=== PATIENT | female | born 1975 | race Caucasian/White ===

== ENCOUNTER 2017-11-07 14:26 | Inpatient (IN) | payer OTHER, SELFPAY ==
[2017-11-02 09:11] LABS: Partial Thromboplast Time 31.1 Seconds (24.1-36.2)
[2017-11-02 09:37] LABS: Hematocrit 40.6 % (37-47); Hemoglobin 13.4 g/dl (12.0-15.0); Mean Corpuscular Hgb 26.7 pg (27.0-32.0); Mean Platelet Vol. 10.1 fl (6.2-12.0); Platelet Count 160 K/mm3 (150-450); Red Blood Count 5.01 M/mm3 (4.2-5.4); Scan Indicated on CBC? Y/N YES- FLAGS NOTED; White Blood Count 4.8 K/mm3 (4.4-11.0)
[2017-11-02 09:40] LABS: Thyroid Stim Hormone (TSH) 2.85 uIU/mL (0.358-3.74)
[2017-11-07] VITALS (17 sets, daily range): BP systolic 97–117; BP diastolic 63–86; PULSE 59–85; RESP 14–16; TEMP 36.4–37.2; O2SAT 92–100; BMI 26.8; BMI 26.6
--- NOTE | 2017-11-07 | HYST_PTH ---
PATIENT: MARIJA HARTAMN LOC: [facility]3 U#:[id number] AGE/SX: 42/F ROOM: [facility]313 RE11/07/[address]: Dr. Christin Diaz MD : [id number] BED: 1 DIS: 11/09/2017 SPEC #: [id number] RECD: 11/07/17 13:23 STATUS: MIRA REQ #: [id number] JOHANA: 11/07/17 00:[address]: Christin Diaz DEPT: SURGICAL PATHOLOGY RECD BY: Rico Abarca ENTERED: 11/07/17 13:23 SP TYPE: HYSTERECT OTHR DR: No Primary Care Phys Tissues: Uterus, NOS Procedures: Surgery Specimen Level V HEADER OPERATION: Attempted laparoscopic hysterectomy, supracervical abdominal hysterectomy PRE-OP DIAGNOSIS: Dysmenorrhea TISSUE SUBMITTED: Uterus, bilateral fallopian tubes MICROSCOPIC DIAGNOSIS Uterus and bilateral fallopian tubes, supracervical abdominal hysterectomy and bilateral salpingectomy: Endometrium ? secretory endometrium. Myometrium - no pathologic diagnosis. Bilateral fallopian tubes - no pathologic diagnosis. See comment. SJ:beto 11/08/17 COMMENT A focal area of proximal portion of the cervix is also noted in the detached piece of uterus which shows chronic cystic cervicitis and squamous metaplasia. MICROSCOPIC DESCRIPTION Slides are reviewed. GROSS DESCRIPTION Received in fixative is one container labeled with the patient's name and designated uterus, bilateral fallopian tubes. The specimen consists of a supracervical hysterectomy specimen consisting of body of the uterus, detached piece of lower uterine segment and detached bilateral fallopian tubes. The uterus with detached piece of lower uterine segment weighs in aggregate 124 gm. The detached piece of lower uterine segment measures 3 x 2.5 x 2 cm. The cervix is not identified in the specimen. The uterus measures 6 x 7 x 5 cm. The serosal surface is maldonado, glistening. The endometrial cavity measures 5 cm in length and up to 4 cm in width. The endometrium is maldonado glistening without any mass lesion and measures up to 1 cm in thickness. Sections of the uterine wall do not reveal any mass lesion and measures up to 2 cm in thickness. The fallopian tubes are not identified as right or left. One of the fallopian tubes measure 4.5 cm in length and 0.5 cm in diameter. The fimbrial end is identified. Sections reveal unremarkable cut surfaces. The second fallopian tube measures 4.5 cm in length and similar appearance to the first tube and measures 5 cm in length and 0.4 cm in diameter with similar appearance to the first one. Records Management Manager sections are submitted in seven cassettes as follows: 1 ? detached piece of body of the uterus, 2 & 3 ? anterior uterine wall, 4 & 5 ? posterior uterine wall, 6 & 7 ? fallopian tube, each cassette containing one fallopian tube. / MCKENZIE:beto 11/07/17 TC:5 CPT: 66172
[2017-11-07] MEDS: Gabapentin 600 MG Tablet PO (07:55)
[2017-11-07] MEDS: Scopolamine 1mg/72hr Patch 1 PATCH TRANSDERM. (07:56)
[2017-11-07] MEDS: Phenazopyridine 95 MG Tablet 190 MG PO (07:56)
[2017-11-07] MEDS: Celecoxib 200 MG Capsule PO (07:56)
[2017-11-07] MEDS: Bupivacaine Mpf 0.5% 30 ML VIAL (11:20)
--- NOTE | 2017-11-07 11:33 | PCM.OPRPT ---
Report of Operation Date of Procedure: 11/07/17 Pre-Operative Diagnosis: menorrhagia, dysmenenorrhea Post-Operative Diagnosis: same + adenomyosis + adhesions of bladder to lower uterine segment Surgery/Procedure Performed:: Laparascopy converted to supracervical hysterectomy with bilateral salpingectomy and cystoscopy Description of Surgical Findings:: Enlarged very boggy uterus, normal ovaries. extensive adhesions of bladder to cervix and uterus, normal bladder hand scraper: Stacy Lemus hand scraper: DARION Caldwell Type of Anesthesia:: General Anesthesiologist: Ana M Palomino Special Medications: Lyssa Specimen's removed: uterus, bilateral tubes Drains: butler Estimated Blood Loss (mL): 200 Fluids Replaced: 1500cc Description of Procedure: The patient was taken to the operating room where she is prepped and draped in dorsal lithotomy position arms tucked at her sides in a neurologically safe and neutral position. Her legs were placed in the yellow fin stirrups. Her arms were padded and the [employer]-vac was engaged to secure her on the table. The medium V-CARE cup was attached to the cervix with sutures at 3 and 9:00 and seated into the cervix and sewn down. It was secured and in good position. He was placed to straight drain and attention was turned to the abdomen Quarter percent Marcaine solution was used to inject the skin incision sites before incision was made. Towel clamps were used to tent up the anterior abdominal wall and a 5 mm intraumbilical incision was made. The 5 mm blade less trocar and sleeve were advanced while observing through the Visiport. Intraperitoneal placement was confirmed and the pneumoperitoneum was created. A left lateral trocar was placed lateral to the inferior epigastric vessels under direct visualization. The rapid insufflator was attached to this port. And then a right lateral port was placed under direct visualization without difficulty. Patient was placed in Trendelenburg and the bowel swept out of the way. The above findings were noted. The mesenteric portions of the tube were clamped, sealed, and transected with the LigaSure device. There is evidence of her previous tubal ligation and the remaining portions of the tube removed through the 5 millimeter port. The round ligaments were clamped, held, and transected with the LigaSure device and then the anterior leaf of the broad ligament was attempted to be taken down. It was very densely adhered to the uterus and I used the polar tip of the LigaSure device in an attempt to take down some of the adhesions and free up the bladder. We then used some blunt and sharp dissection and were able to dissect down portions of the bladder in the midline of the cervix. The utero-ovarian ligaments were then clamped, sealed, and transected with the LigaSure device and the uterine arteries were isolated. The uterine arteries were clamped, sealed, and transected with the LigaSure device. However, there was a significant amount of backbleeding. In addition, we are having difficulty visualizing the bladder flap dissection due to some oozing from that area. The bladder was backfilled with only 300 cc of normal saline and then the bladder dissection was resumed. It was dissected down pretty significantly and then mucoid material entered into the operative field. We could also visualize a defect in the cervix and the same defect in the cervix at 12:00 was visualized vaginally as well. This must have been the area from the previous cervical transection and repair from her prior . However, we still want dissected down adequately to allow access to the V CARE cuff ring. There is still some dense adhesions over by the left uterine artery descending branch. At this point, I did not feel comfortable proceeding anymore with dissection of the bladder flap laparoscopically and it seemed that we will be proceeding with a supracervical hysterectomy so the decision was made to go ahead and proceed with mini laparotomy incision through her previous scar. The 5 mm trocar ports were all removed and the skin incisions closed with Monocryl suture and Dermabond. An 8 cm laparotomy incision was made through the midline of her previous section scar and dissected through to the underlying layer fascia with the scalpel. The fascia was dissected off the rectus muscles and the rectus muscles were in the midline. Peritoneum was entered sharply and the peritoneal incision carried superiorly and inferiorly with good visualization of the bladder. The Abisai O retractor was placed into the incision and a sweep was made to make sure that no bowel was entrapped and it was secured for retraction. The bowel was packed away with moist laparotomy sponges. At this point I was able to bluntly and sharply dissected down the bladder adequately on the left side to allow access to the descending branches of the uterine artery. At the level of the internal cervical loss the uterine arteries were clamped, transected and suture-ligated a straight clamp was placed along the cardinal ligaments and this was clamped, transected and suture ligated. The uterus was amputated at the level of the internal cervical os allow better visualization. At this point, latter was dissected down well but I still was not certain that I would be able to remove the entire cervix without possibly compromising the bladder or the vaginal cuff sutures impinging upon the bladder. I removed another 1.5 cm of the length of the cervix and handed this off as part of the specimen. There was a full-thickness defect in the anterior cervix. The delineation between the vaginal wall and the cervix somewhat difficult. However, this anterior portion of the vaginal wall and the cervix was oversewn. Cervical stump was oversewn with interrupted 0 Vicryl sutures and was hemostatic. At this point the pelvis was irrigated with normal saline and any bleeding was Bovie cauterized. The pedicles were all hemostatic and the ovaries appeared normal. The instruments removed from the abdominal cavity and some Lyssa was placed over the cervical stump. Parietal peritoneum and rectus muscles were closed en bloc with an 0 Vicryl suture in a running standard fashion. Lyssa was placed over the rectus muscles and any bleeding was Bovie cauterized. The rectus fascia was closed with #1 Vicryl suture in a running standard fashion by Dr. Salazar. The subcutaneous tissue was examining bleeding was Bovie cauterized and then she closed the skin in a subcuticular fashion with Monocryl suture and skin glue was placed over the laparotomy incision. While she was finishing the skin closure, I performed a cystoscopy. Both ureteral orifices and ureteral jets were noted. Entire bladder surface was examined and found to be intact. At this point the vaginal instruments were removed and the Butler was replaced. Vaginal sweep was completed by me. Sponge lap and needle counts were correct and the patient was taken to recovery room in stable condition. Grafts/Implants Used: none - Complications none - Admit VTE Documentation VTE Present on Admission: Yes VTE Mechan Device Prophylaxis: None VTE Pharm Prophylaxis ordered?: Yes
[2017-11-07] MEDS: Lactated Ringers 1,000 ML 125 ML IV ×2 (15:41→21:08)
[2017-11-07] MEDS: Acetaminophen 500 MG Tablet 1000 MG PO ×2 (15:44→21:07)
[2017-11-07] MEDS: Ketorolac 30 MG/ML Syringe IV ×2 (15:44→21:07)
[2017-11-07] MEDS: oxyCODONE 5 MG Tablet PO (18:33)
[2017-11-07] MEDS: Senna/Docusate Sodium 1 Tablet PO (21:07)
[2017-11-07] MEDS: Docusate Sodium 100 MG Capsule PO (21:07)
[2017-11-08 01:30] VITALS: BP 98/63; PULSE 75; RESP 16; TEMP 36.6; O2SAT 98
[2017-11-08] MEDS: Ketorolac 30 MG/ML Syringe IV ×2 (03:12→09:56)
[2017-11-08] MEDS: oxyCODONE 5 MG Tablet PO ×2 (05:15→17:48)
[2017-11-08] MEDS: Levothyroxine 75 MCG Tablet PO (05:15)
[2017-11-08] MEDS: Acetaminophen 500 MG Tablet 1000 MG PO ×2 (05:15→21:07)
[2017-11-08] MEDS: Enoxaparin 40 MG/0.4 ML Syringe SC (05:16)
[2017-11-08 06:15] LABS: Hematocrit 32.7 % (37-47); Mean Corp Hgb Conc 33.6 g/gl (32-36); Mean Corpuscular Hgb 27.3 pg (27.0-32.0); Mean Corpuscular Volume 81.1 fL (81-99); Mean Platelet Vol. 10.1 fl (6.2-12.0); Platelet Count 169 K/mm3 (150-450); RBC Distribution Width CV 23.3 % (11.6-14.6); RBC Distribution Width SD 65.3 fl (35.1-43.9); Red Blood Count 4.03 M/mm3 (4.2-5.4); White Blood Count 7.9 K/mm3 (4.4-11.0)
[2017-11-08 06:17] LABS: Scan Indicated on CBC? Y/N YES- FLAGS NOTED
[2017-11-08 07:02] LABS: Differential Comment SCANNED
[2017-11-08 07:20] VITALS: O2SAT 96
[2017-11-08 08:00] VITALS: BP 98/58; PULSE 74; RESP 16; TEMP 36.9; O2SAT 100
[2017-11-08] MEDS: Senna/Docusate Sodium 1 Tablet PO ×2 (08:20→21:06)
[2017-11-08] MEDS: Docusate Sodium 100 MG Capsule PO ×2 (08:20→21:07)
[2017-11-08] MEDS: Ondansetron 4 MG/2 ML Vial IV (09:56)
[2017-11-08] MEDS: 0.9% NaCl Peripheral Flush Adult/Peds IV ×2 (09:57→10:17)
[2017-11-08] MEDS: HYDROmorphone 1 MG/ML Syringe IV (10:17)
--- NOTE | 2017-11-08 11:04 | PCM.PN.OB ---
Subjective: Was very painful earlier, w/ nausea and now improved after IV meds. No flatus. Eric. some regular diet. No emesis. Hasn't voided yet. No VB. - Physical Exam General: Alert, Cooperative, No apparent distress Abdomen: Soft, Distended - mildly, softly, Tender - appropriately Skin: Incision - bandage clean, dry and intact w/ skin glue Vital Signs Temp Pulse Resp BP Pulse Ox 98.5 F 74 16 98/58 L 100 11/08/17 08:00 11/08/17 08:00 11/08/17 08:00 11/08/17 08:00 11/08/17 08:00 Oxygen Delivery Method Room Air Weight: 72.575 kg Body Mass Index (BMI) 26.6 Intake and Output for Last 24 Hours 11/06/17 11/07/17 11/08/17 23:59 23:59 23:59 Intake Total 1650 / 1650 1962 / 1962 Output Total 605 / 605 540 / 540 Balance 1045 / 1045 1422 / 1422 Laboratory Tests Past 24 Hrs 11/08/17 05:49 WBC 7.9 RBC 4.03 L Hgb 11.0 L Hct 32.7 L MCV 81.1 MCH 27.3 MCHC 33.6 RDW 23.3 H RDW Differential 65.3 H Plt Count 169 MPV 10.1 Differential Comment SCANNED Medical Necessity - Tobacco Use Smoking Status: Never smoker Assessment/Plan POD#1 s/p TLH converted to supracervical abdominal hysterectomy. Doing well ambulate voiding trial if nausea and pain well controlled w/ po meds ok to d/c home later today, otherwise tomorrow. D/w her surgical findings, postop restrictions pathology pending
--- NOTE | 2017-11-08 11:10 | PCM.DC.AHY ---
Discharge Diet: No Restrictions Discharge Activity: Return to Normal Activity, May Not Drive - while taking narcotic pain medications., May Shower May shower in (days): 0 May resume sexual activity in: 6-8 weeks Call your doctor if your incision/area has: Continuous Slow Oozing, Sudden Increased Bleeding, Increased Pain/ Swelling, Increased Redness, Foul Smelling Discharge Call your doctor if you observe: Fever of 101 or Higher, Inability to urinate, Inability to have a bowel movement, Using more than one pad per hour Instructions: Recovering from Hysterectomy Allergies/Adverse Reactions: Allergies codeine Allergy (Verified 10/31/17 14:05) Hives Medications to take at Discharge Levothyroxine Sodium [Synthroid] 75 mcg PO DAILY 10/31/17 Ibuprofen [Motrin] 600 mg PO Q6H PRN #60 tab 11/08/17 Oxycodone HCl/Acetaminophen [Percocet 5/325] 1 - 2 tab PO Q8 7 Days #28 tab 11/08/17 Prochlorperazine Maleate [Compazine] 10 mg PO Q8 PRN 7 Days #15 tab 11/08/17 The following prescriptions were given: Oxycodone HCl/Acetaminophen [Percocet 5/325] 1 - 2 tab PO Q8 7 Days #28 tab Prochlorperazine Maleate [Compazine] 10 mg PO Q8 PRN 7 Days #15 tab PRN Reason: Nausea Ibuprofen [Motrin] 600 mg PO Q6H PRN #60 tab PRN Reason: Pain Primary Care Physician: Care Physician,No Primary [Primary Care Provider] - Please Follow Up With: Christin Diaz MD - [phone] When: 1-2 weeks and 6 weeks or as needed
[2017-11-08 13:42] VITALS: BP 88/54; PULSE 73; RESP 16; TEMP 36.4; O2SAT 99
[2017-11-08 15:43] VITALS: BP 101/66; PULSE 86; RESP 18; TEMP 36.6; O2SAT 100
[2017-11-08] MEDS: Ketorolac 10 MG Tablet PO ×2 (16:45→21:06)
[2017-11-08 21:00] VITALS: BP 104/69; PULSE 86; RESP 16; TEMP 37.2; O2SAT 100
[2017-11-09] MEDS: oxyCODONE 5 MG Tablet PO ×2 (01:15→08:08)
[2017-11-09] MEDS: Ketorolac 10 MG Tablet PO ×2 (04:45→10:16)
[2017-11-09 04:46] VITALS: BP 91/58; PULSE 66; RESP 14; TEMP 36.6; O2SAT 83
[2017-11-09] MEDS: Levothyroxine 75 MCG Tablet PO (06:59)
[2017-11-09] MEDS: Acetaminophen 500 MG Tablet 1000 MG PO (06:59)
[2017-11-09] MEDS: Enoxaparin 40 MG/0.4 ML Syringe SC (06:59)
[2017-11-09 07:01] VITALS: BP 89/58; PULSE 73; RESP 14; TEMP 36.5; O2SAT 97
[2017-11-09 07:40] VITALS: O2SAT 98
[2017-11-09 07:50] VITALS: BP 108/72
--- NOTE | 2017-11-09 08:01 | PCM.PN.OB ---
Subjective: Pain controlled. Some nausea this am but hasn't eaten yet. NO emesis. - Physical Exam General: Alert, Oriented x3 Abdomen: Soft, Non-Distended - appropriately tender; incision - c/d/i Extremities: No Calf Tenderness Vital Signs Temp Pulse Resp BP Pulse Ox 97.7 F L 73 14 108/72 98 11/09/17 07:01 11/09/17 07:01 11/09/17 07:01 11/09/17 07:50 11/09/17 07:40 Oxygen Delivery Method Room Air Weight: 160 lb Body Mass Index (BMI) 26.6 Intake and Output for Last 24 Hours 11/07/17 11/08/17 11/09/17 23:59 23:59 23:59 Intake Total 1650 / 1650 2628 / 2628 300 / 300 Output Total 605 / 605 640 / 640 Balance 1045 / 1045 1987 / 1987 300 / 300 Medical Necessity - Tobacco Use Smoking Status: Never smoker Assessment/Plan POD#2 s/p RAUL GI - patient to eat some breakfast & see if nausea improves Plan to d/c home once patient tolerating PO fluids & solids today Patient & nurse aware of plan
[2017-11-09] MEDS: Ondansetron 4 MG/2 ML Vial IV (08:08)
[2017-11-09] MEDS: 0.9% NaCl Peripheral Flush Adult/Peds IV (08:09)
[2017-11-09] MEDS: Docusate Sodium 100 MG Capsule PO (09:07)
[2017-11-09] MEDS: Senna/Docusate Sodium 1 Tablet PO (09:08)
[2017-11-09 10:21] VITALS: BP 98/64; PULSE 86; RESP 18; TEMP 37.1; O2SAT 98
[2017-11-09 10:34] VITALS: BP 98/64; PULSE 86; RESP 18; TEMP 37.1; O2SAT 98
--- NOTE | 2017-11-09 10:35 | NURSING ---
PT HAD BEEN C/O NAUSEA OFF & ON WITH MOVEMENT THIS AM. ZOFRAN GIVEN. PT HAD EMESIS OF APPROX 300CC & STATING FEELS BETTER AFTER THROWING UP. DR REVELES CALLED WITH UPDATE. STATES OK TO DC PT HOME LONG PT CAN TOLERATE PO LIQUIDS BEFORE GOING.
== END 2017-11-09 10:55 | disposition home or self-care (01) | DRG 743 ==
LOC: MS3 14:27 → SDC 11-08 15:09 → MS3 11-08 15:19
PROVIDERS: Admitting Provider Obstetrics & Gynecology; Visit Provider Obstetrics & Gynecology
PROC: 0UT94ZZ Resection of Uterus, Percutaneous Endoscopic Approach (ICD-10-PCS; principal; 2017-11-07 07:40)
DX: N80.0 Endometriosis of uterus (principal); N94.6 Dysmenorrhea, unspecified; N92.0 Excessive and frequent menstruation with regular cycle; K66.0 Peritoneal adhesions (postprocedural) (postinfection); D50.0 Iron deficiency anemia secondary to blood loss (chronic); M79.7 Fibromyalgia; E03.9 Hypothyroidism, unspecified; Z86.711 Personal history of pulmonary embolism; Z86.718 Personal history of other venous thrombosis and embolism; Z79.899 Other long term (current) drug therapy
CPT/HCPCS: 36415; 84443; 85027; 85610; 85730; 86850; 86900; 88307; J7120; A4216; J2405

== ENCOUNTER → 2018-08-02 09:35 | Outpatient (CLI) | payer OTHER, SELFPAY ==
[2018-08-02 11:40] LABS: ALB/GLOB Ratio 1.1 RATIO (0.9-2.4); AST(SGOT) 8 U/L (15-37); Alanine Aminotransfer ALT/SGPT 17 U/L (13-56); Albumin, Serum 3.9 g/dL (3.2-5.0); Alkaline Phosphatase 69 U/L (45-117); Anion Gap 8 (5-15); BUN 8 mg/dL (7-18); BUN/Creat Ratio 11.8 RATIO (10-20); Calcium,Total 8.7 mg/dL (8.5-10.1); Chloride 106 mmol/L (98-107); Creatinine, Serum 0.68 mg/dL (0.55-1.02); EST Glomerular Filtration Rate 101 mL/min (>60); Est Glom Filt Rate - Afr Amer 122 mL/min (>60); Globulin 3.5 g/dL (2.2-4.2); Glucose 98 mg/dL (74-106); Potassium 4.1 mmol/L (3.5-5.1); Protein, Total 7.4 g/dL (6.4-8.2); Sodium Level 141 mmol/L (136-145); T4 Free Direct 1.02 ng/dL (0.76-1.46); Thyroid Stim Hormone (TSH) 1.66 uIU/mL (0.358-3.74)
== END ==
DX: E03.8 Other specified hypothyroidism (principal)
CPT/HCPCS: 36415; 80053; 84439; 84443

== ENCOUNTER 2019-08-07 13:40 | Emergency (ER) | payer OTHER, SELFPAY ==
[2019-08-07 13:42] VITALS: BP 135/90; PULSE 87; RESP 16; TEMP 36.6; O2SAT 100; BMI 28.4
--- NOTE | 2019-08-07 14:06 | RAD_ITS ---
STUDY: X-RAY CHEST REASON FOR EXAM: Female, 44 years old. C/O CHEST PAIN WITH DEEP BREATH TO RIGHT AXILLA, BACK AND RADIATING TO RIGHT CHEST, and quot; IT''S DIFFERENT FROM MY FIBRO PAIN and quot; PER PT. PAIN STARTED TODAY. C/O HEADACHE TO RIGHT FOREHEAD RADIATING TO RIGHT EYE TECHNIQUE: PA and lateral views of the chest. COMPARISON: None. FINDINGS: EKG electrodes are seen. The lungs are clear and expanded. There is no demonstrated pleural abnormality. Normal size heart. Normal mediastinum and kareem. Normal visualized pulmonary arteries. Normal visualized aortic arch and descending thoracic aorta. Normal visualized thoracic spine. Normal visualized ribs, clavicles, and shoulders. There is no demonstrated abnormality of the visualized soft tissue structures of the upper abdomen. RAD/Chest PA and Lateral IMPRESSION: Normal x-ray examination of the chest. Electronically Signed: Raf Lopez, at 15:14 EST , Service support ,
--- NOTE | 2019-08-07 14:06 | EKG12_ITS ---
Test Reason : CP Blood Pressure : / mmHG Vent. Rate : 079 BPM Atrial Rate : 079 BPM P-R Int : 130 ms QRS Dur : 082 ms QT Int : 384 ms P-R-T Axes : 068 057 057 degrees QTc Int : 440 ms Normal sinus rhythm Normal ECG Confirmed by JEREMY JOHNS, YANNICK ([id number]), medical editor PREMA BEST ([id number]) on 08/11/2019 9:03:48 AM Referred By: KESHAWN/MAGDALENA Confirmed By:YANNICK LUNA MD
--- NOTE | 2019-08-07 14:08 | ED.VIS.GEN ---
History of Present Illness Chief Complaint: Chest Pain Informant: Patient Onset: Today Context: Gradual Onset Timing: Waxes and wanes Current Severity: Moderate Maximum Severity: Moderate Narrative: She presents with right-sided chest pain that started shortly after she got up this morning. She states it feels like the pain starts in her back, wraps around under her axilla to the right anterior chest. She has occasional pain down her right arm. She denies shortness of breath. Pain is worse with deep breath or movement of her arm. She denies any recent change in activity or injury. - Past Medical History (1) Fibromyalgia Status: Chronic (2) Hypothyroid Status: Chronic (3) Pulmonary embolism Status: Resolved Past Medical History - Allergies and Home Meds Allergies/Adverse Reactions: Allergies codeine Allergy (Verified 08/07/19 13:55) Hives Primary Care Physician: Care Physician,No Primary [Primary Care Provider] - Prior records reviewed: Yes Smoking Status: Never smoker Review of Systems General: Denies: Chills, Fever Eyes: Denies: Visual changes - bilaterally ENT: Denies: Bilateral ear pain Cardiovascular: Reports: Chest pain. Denies: Palpitations, Heart racing Respiratory: Denies: Dyspnea, Cough Gastrointestinal: Denies: Abdominal pain, Nausea, Vomiting, Diarrhea Musculoskeletal: Reports: Extremity Pain Skin: Denies: Rash Neurological: Denies: Headache, Parasthesia Allergy: Denies: Uticaria Physical Exam Vital Signs/Narrative: Vital Signs Temp Pulse Resp BP Pulse Ox 08/07/19 13:42 97.9 F 87 16 135/90 H 100 Inital Vital Signs reviewed: Yes General: Well nourished, Well developed Head: Normocephalic ENT: Moist mucous membranes Neck: Supple Cardiovascular: Regular rate, Regular rhythm Respiratory: No distress, CTA bilaterally, Chest tenderness - Patient has reproducible tenderness over the right anterior chest. Abdomen: Soft, Nontender Back: - - Tenderness in the musculature over the right thoracic paraspinal muscles and scapula. Extremities: Tenderness - Muscular tenderness of the upper arm. Strong distal pulses noted. Neurological: Alert, Oriented x3, Normal Strength, Normal Sensation Psychological: Normal affect Diagnostic/Tx/Re-eval Chest X-Ray - ED: 2 View, Read by ED Physician, Normal, Heart, Lungs, Mediastinum, Bony Structures, No Acute Disease 08/07/19 14:06 Chest PA and Lateral [RAD] Stat Laboratory Results 08/07/19 08/07/19 08/07/19 14:20 14:20 14:20 WBC 6.8 RBC 4.97 Hgb 14.7 Hct 42.9 MCV 86.3 MCH 29.6 MCHC 34.3 RDW Std Deviation 37.9 RDW Coeff of Vahe 12.0 Plt Count 220 MPV 9.8 Immature Gran % (Auto) 0.300 Neut % (Auto) 68.1 Lymph % (Auto) 24.7 [place] % (Auto) 5.3 Eos % (Auto) 1.2 Baso % (Auto) 0.4 Absolute Neuts (auto) 4.7 Absolute Lymphs (auto) 1.69 Nucleated RBC % 0 D-Dimer Quant (PE/DVT) 0.38 Sodium 138 Potassium 3.7 Chloride 105 Carbon Dioxide 27.0 Anion Gap 6 BUN 14 Creatinine 0.77 Estim Creat Clear Calc 84.77 Est GFR (MDRD) Af Amer 105 Est GFR (MDRD) Non-Af 87 BUN/Creatinine Ratio 18.2 Glucose 115 H Calcium 9.1 Troponin I < 0.015 - EKG Initial EKG Interpretation: Sinus Rhythm - Sinus at 79 with no acute ischemia. - Medical Decision Making Patient presents with what appears to be musculoskeletal chest pain. She does have a history of PE. Cardiac work-up was unremarkable and she has a negative d-dimer. Patient will be treated with naproxen and Flexeril. ED Disposition - Plan for ED Patient: Disposition: Home or Assisted Living Diagnosis: Chest pain, musculoskeletal Instructions: Chest Wall Strain Prescriptions: cycloBENZAPRine HCl [Flexeril] 10 mg PO TID PRN #20 tab PRN Reason: Muscle Spasm Transmission Status: Pending to [email or web address] Naproxen [Naprosyn] 500 mg PO BID PRN PRN #20 tab PRN Reason: Pain Score 4-10/10 Transmission Status: Pending to [facility] Referrals: Ananth Rubio MD [STAFF PHYSICIAN] - As Needed
[2019-08-07 14:25] LABS: Absolute Lymphocyte Count 1.69 X10^3/uL (0.83-4.51); Absolute Neutrophil Count 4.7 X10^3/uL (2.0-7.7); Basophil# 0.03 X10^3/uL; Basophil% 0.4 % (0-1); Eosinophil# 0.08 X10^3/uL; Eosinophils% 1.2 % (0-5); Hematocrit 42.9 % (37-47); Hemoglobin 14.7 g/dL (12.0-15.0); Lymphocyte # 1.69 X10^3/ul (4.0); Lymphocyte % 24.7 % (19-41); Mean Corp Hgb Conc 34.3 g/dL (32-36); Mean Corpuscular Hgb 29.6 pg (27.0-32.0); Mean Corpuscular Volume 86.3 fL (81-99); Mean Platelet Vol. 9.8 fl (6.2-12.0); Monocyte# 0.36 X10^3/uL; Monocyte% 5.3 % (0-10); NRBC Flagged by Analyzer 0 % (0-5); Neutrophil # 4.65 X10^3/uL (2.7-7.7); Neutrophil % 68.1 % (47-70); Platelet Count 220 K/mm3 (150-450); RBC Distribution Width SD 37.9 fl (35.1-43.9); Red Blood Count 4.97 M/mm3 (4.2-5.4); White Blood Count 6.8 K/mm3 (4.4-11.0)
[2019-08-07] MEDS: Ketorolac 30 MG/ML Syringe IV (14:35)
[2019-08-07] MEDS: 0.9% Normal Saline 1,000 ML 150 ML IV (14:35)
[2019-08-07 14:43] LABS: Anion Gap 6 (5-15); BUN 14 mg/dL (7-18); BUN/Creat Ratio 18.2 RATIO (10-20); Calcium,Total 9.1 mg/dL (8.5-10.1); Chloride 105 mmol/L (98-107); Creatinine, Serum 0.77 mg/dL (0.55-1.02); EST Glomerular Filtration Rate 87 mL/min (>60); Est Glom Filt Rate - Afr Amer 105 mL/min (>60); Estimated Creatinine Clearance 84.77 ml/min; Glucose 115 mg/dL (74-106); Potassium 3.7 mmol/L (3.5-5.1); Sodium Level 138 mmol/L (136-145)
[2019-08-07 14:47] LABS: D-Dimer Quantitative (DVT/PE) 0.38 FEU/ug/m (0.27-0.49)
[2019-08-07 15:29] VITALS: BP 112/77; PULSE 74; RESP 15; O2SAT 99
== END 2019-08-07 15:29 | disposition home or self-care (01) ==
PROVIDERS: Emergency Provider Emergency Medicine
DX: R07.89 Other chest pain (principal); E03.9 Hypothyroidism, unspecified; M79.7 Fibromyalgia; Z86.711 Personal history of pulmonary embolism
CPT/HCPCS: 71046; 80048; 84484; 85025; 85379; 93005; 96361; 96374; 99284

== ENCOUNTER → 2019-11-03 10:25 | Outpatient (CLI) | payer OTHER, SELFPAY ==
[2019-11-03 12:20] LABS: Anion Gap 5 (5-15); BUN 14 mg/dL (7-18); BUN/Creat Ratio 20.7 RATIO (10-20); Calcium,Total 9.4 mg/dL (8.5-10.1); Chloride 107 mmol/L (98-107); Creatinine, Serum 0.68 mg/dL (0.55-1.02); EST Glomerular Filtration Rate 101 mL/min (>60); Est Glom Filt Rate - Afr Amer 122 mL/min (>60); Glucose 103 mg/dL (74-106); Potassium 3.9 mmol/L (3.5-5.1); Sodium Level 140 mmol/L (136-145); T4 Free Direct 0.92 ng/dL (0.76-1.46)
== END ==
DX: E03.9 Hypothyroidism, unspecified (principal)
CPT/HCPCS: 36415; 80048; 84439; 84443

== ENCOUNTER → 2020-04-23 09:29 | Outpatient (CLI) | payer OTHER, SELFPAY ==
[2020-04-23 10:51] LABS: Thyroid Stim Hormone (TSH) 1.09 uIU/mL (0.358-3.74)
[2020-04-23 12:54] LABS: Anion Gap 4 (5-15); BUN 9 mg/dL (7-18); BUN/Creat Ratio 12.3 RATIO (10-20); Chloride 105 mmol/L (98-107); Cholesterol 175 mg/dL (200); Creatinine, Serum 0.73 mg/dL (0.55-1.02); EST Glomerular Filtration Rate 92 mL/min (>60); Est Glom Filt Rate - Afr Amer 111 mL/min (>60); Glucose 91 mg/dL (74-106); High Density Lipoprotein 43 mg/dL; Potassium 3.9 mmol/L (3.5-5.1); Sodium Level 138 mmol/L (136-145); Triglycerides 161 mg/dL; Very Low Density Lipoprotein 32 mg/dL (5-40)
== END ==
PROVIDERS: PCP Family Medicine; Referring Provider Family Medicine; Visit Provider Family Medicine
DX: E03.9 Hypothyroidism, unspecified (principal); Z13.220 Encounter for screening for lipoid disorders; Z13.1 Encounter for screening for diabetes mellitus
CPT/HCPCS: 36415; 80048; 80061; 84443

== ENCOUNTER → 2021-03-22 17:26 | Outpatient (CLI) | payer OTHER, SELFPAY | PROVIDERS: PCP Family Medicine; Visit Provider Family Medicine | DX: B34.9 Viral infection, unspecified (principal) | CPT/HCPCS: 87635; U0005; U0003 ==

== ENCOUNTER 2021-09-02 09:23 | Outpatient (CLI) | payer OTHER, SELFPAY ==
[2021-09-02 10:40] LABS: Anion Gap 3 (5-15); BUN 9 mg/dL (7-18); BUN/Creat Ratio 13.8 RATIO (10-20); Calcium,Total 8.6 mg/dL (8.5-10.1); Chloride 108 mmol/L (98-107); Cholesterol 166 mg/dL (200); Creatinine, Serum 0.65 mg/dL (0.55-1.02); EST Glomerular Filtration Rate 104 mL/min (>60); Est Glom Filt Rate - Afr Amer 126 mL/min (>60); Glucose 92 mg/dL (74-106); High Density Lipoprotein 46 mg/dL; Potassium 3.8 mmol/L (3.5-5.1); Sodium Level 141 mmol/L (136-145); Thyroid Stim Hormone (TSH) 1.26 uIU/mL (0.358-3.74); Triglycerides 129 mg/dL; Very Low Density Lipoprotein 26 mg/dL (5-40)
== END 2021-09-02 23:59 | disposition home or self-care (01) ==
LOC: LAB 09:26
PROVIDERS: PCP Family Medicine; Visit Provider Family Medicine
DX: Z00.00 Encounter for general adult medical examination without abnormal findings (principal)
CPT/HCPCS: 36415; 80048; 80061; 84443

== ENCOUNTER 2021-11-16 17:14 | Emergency (ER) | payer OTHER, SELFPAY ==
[2021-11-16 17:15] VITALS: BP 127/92; PULSE 87; RESP 16; TEMP 36.1; O2SAT 98; BMI 26.9
--- NOTE | 2021-11-16 17:16 | CT_ITS ---
STUDY: CT ABDOMEN AND PELVIS WITH CONTRAST REASON FOR EXAM: Female, 46 years old. Right lower quadrant abdominal pain RADIATION DOSAGE (If Supplied By Facility): CTDIvol = ( 12.35 ) mGy, DLP = ( 748.47 ) mGycm TECHNIQUE: Transaxial images were obtained from the dome of the diaphragm to the symphysis pubis without oral contrast. IV 100mL Isovue-300 was administered. Sagittal and coronal images were reconstructed. Individualized dose optimization techniques were used for this CT. COMPARISON: CT and ultrasound dated 04/18/2014 FINDINGS: The visualized lung bases are unremarkable. The visualized portions of the heart are within normal limits. Normal liver. Normal gallbladder and extrahepatic biliary system. Normal spleen. Normal pancreas. Normal bilateral adrenal glands. Normal right kidney. Normal left kidney. Normal visualized stomach. Normal small intestine. Normal colon. The appendix is visualized and appears normal. Normal abdominal aorta. Normal inferior vena cava. Normal retroperitoneum. There is trace free fluid within the pelvis, not significantly changed since the prior examination and likely physiologic. There appears to be a corpus luteal cyst within the right ovary. There is a round low-attenuation focus within the cervix consistent with a nabothian cyst. Normal urinary bladder. Normal abdominal wall. Normal osseous structures. CT/Abdomen/Pelvis W IV Cont ONLY IMPRESSION: No acute intra-abdominal process. Electronically Signed: Sherry Eckert MD at 18:35 EDT ,
--- NOTE | 2021-11-16 17:25 | ED.VIS.GI ---
HPI HPI - GI History of Present Illness Chief Complaint: Abd Pain Informant: patient Abdominal Pain/Flank Pain Onset: Days Context: Gradual Onset Timing: Continuous and Waxes and wanes Quality: Dull Location: RLQ Current Severity: Mild Maximum Severity: Moderate Worsened by: Nothing Relieved by: Nothing Nausea/Vomiting/Emesis GI Symptom: Negative for Nausea and Vomiting Diarrhea/Melena/Hematochezia GI Symptom: Negative for Diarrhea, Melena and Hematochezia Associated Symptoms Associated Symptoms: Negative for Dysuria, Frequency, Hematuria and Urgency Narrative Narrative: 46-year-old female history of prior , bladder reconstruction and hysterectomy with her ovaries intact. States she has had right lower quadrant pain for about 2 weeks. She denies any nausea or vomiting. No diarrhea. She has a history of mild constipation. She denies any dysuria. No fever. She has a decreased appetite. Denies any abdominal wall trauma. Saw her primary care physician today who sent her in the emergency department for further evaluation peer Prior similar symptoms: No Recent Illness/Hospitalization: No PFSH PFSH Home Medications levothyroxine [Synthroid] 75 mcg PO DAILY 10/31/17 [History Last Taken 11/07/17 06:00] ibuprofen 600 mg PO Q6H PRN #60 tab 11/08/17 [Rx Last Taken Unknown] cyclobenzaprine 10 mg PO TID PRN #20 tab 08/07/19 [Rx Last Taken Unknown] fluticasone propionate 2 spray NASAL DAILY 08/07/19 [History Last Taken Unknown] naproxen 500 mg PO BID PRN PRN #20 tab 08/07/19 [Rx Last Taken Unknown] Allergy/AdvReac Type Severity Reaction Status Date / Time codeine Allergy Hives Verified 11/16/21 17:16 Social History Smoking Status: Never smoker ROS ROS ED ROS Narrative Right lower quadrant abdominal pain. Decreased appetite. Review of Systems ROS Unobtainable: Denies due to encephalopathy Constitutional Constitutional ED: Denies fever(s) ENT ENT ED: Denies ear pain Cardiovascular Cardiovascular: Denies chest pain Respiratory/Chest Respiratory/Chest: Denies dyspnea Gastrointestinal Gastrointestinal: Reports abdominal pain and constipation; Denies diarrhea, melena, nausea or vomiting Genitourinary Genitourinary ED: Denies dysuria or hematuria Musculoskeletal Musculoskeletal: Denies myalgias Integumentary Denies rash Neurologic Neurologic: Denies headache(s) Psychiatric Psychiatric: Denies depression Endocrine Endocrinology: Denies polyuria Hematologic/Lymphatic Hematologic/Lymphatic: Denies easy bruising Allergic/Immunologic Allergic/Immunologic ED: Denies urticaria EXAM Physical Exam Narrative Exam Narrative: 46-year-old female no acute distress vital signs stable afebrile. HEENT, neck, heart lung exam normal. Abdomen soft nondistended normal bowel sounds no peritoneal signs. Tender right lower quadrant. Otherwise abdomen is benign. No hernias. No masses. No obstruction. Back nontender. Moving all 4 extremities. Neurologically she is awake and alert. Const Vital Signs: 11/16/21 17:15 Temperature 96.9 F L Temperature Source Temporal Pulse Rate 87 Respiratory Rate 16 Blood Pressure 127/92 H Blood Pressure Mean 103 Pulse Ox 98 Oxygen Delivery Method Room Air Positive well nourished, well developed and obese; Negative for cachectic, contractures or unkempt General Appearance ED: well developed and NAD; Negative for unkempt, cachectic, contractures or pallor Nutritional Appearance: obese; Negative for cachectic HEENT Reports moist mucous membranes normocephalic and atraumatic; Negative for trauma or tenderness Eyes PERRL and EOMs intact bilaterally Neck no lymphadenopathy, supple and no JVD General: Negative for tenderness Resp normal respiratory effort and clear to auscultation bilaterally Auscultation: Negative for rales, rhonchi or wheezes Cardio regular rate, regular rhythm, S1 normal heart sound, S2 normal heart sound and no murmurs GI non-distended and no masses; Negative for non-tender Inspection: Negative for abdominal distention Auscultation: normoactive bowel sounds; Negative for hyperactive bowel sounds or hypoactive bowel sounds Palpation: soft and tender; Negative for guarding, rigid, hepatomegaly, splenomegaly, hernia, mass, pulsatile mass or rebound tenderness present Back/Spine no CVA tenderness General Back: Negative for CVA tenderness Extremity full ROM General Extremety ED: Negative for edema or tenderness General Extremity: Negative for edema Neuro Sensorium / Orientation: alert, oriented to person, oriented to place and oriented to time Motor Exam: strength 5/5 throughout Psych mental status grossly normal and thought process normal Appearance: Negative for unkempt Skin no wounds General Skin Exam: Negative for jaundice or pallor Lesions: no lesions Rashes: no rashes MDM MDM MDM Narrative Medical decision making narrative: 46-year-old female right lower quadrant abdominal pain for 2 weeks. No vomiting. No dysuria. No fever. Clinically I doubt this is appendicitis. She will get a CAT scan and labs. Repeat exam at 7:05 PM patient is doing well. Should be discharged home. Abdominal pain uncertain etiology. Tylenol and Motrin for pain. Lab Data Attestation: I reviewed the patient's lab results. Lab results narrative: CBC normal white count 9. H&H 15 and 43. Electrolytes potassium of 3.2 gap of 6 normal BUN and creatinine. Liver enzymes are normal. UA no white or red cells. Rare bacteria and no nitrites so it is negative also. CAT scan of the abdomen is negative. Appendix seen and normal. Labs: Laboratory Results - last 24 hr 11/16/21 11/16/21 11/16/21 17:25 17:25 17:32 WBC 9.3 RBC 5.02 Hgb 15.2 H Hct 43.3 MCV 86.3 MCH 30.3 MCHC 35.1 RDW Std Deviation 38.7 RDW Coeff of Vahe 12.4 Plt Count 224 MPV 10.5 Immature Gran % (Auto) 0.400 Neut % (Auto) 68.3 Lymph % (Auto) 24.3 [place] % (Auto) 5.6 Eos % (Auto) 1.2 Baso % (Auto) 0.2 Absolute Neuts (auto) 6.3 Absolute Lymphs (auto) 2.25 Nucleated RBC % 0 Sodium 138 Potassium 3.2 L Chloride 104 Carbon Dioxide 28.0 Anion Gap 6 BUN 11 Creatinine 0.78 Estim Creat Clear Calc 81.96 Est GFR (MDRD) Af Amer 103 Est GFR (MDRD) Non-Af 85 BUN/Creatinine Ratio 14.1 Glucose 92 Calcium 9.0 Total Bilirubin 0.60 AST 9 L ALT 16 Alkaline Phosphatase 70 Total Protein 7.9 Albumin 4.2 Globulin 3.7 Albumin/Globulin Ratio 1.1 Urine Color Yellow Urine Clarity Sl. Cloudy Urine pH 6.0 Ur Specific [place] 1.030 Urine Protein 15 H Urine Glucose (UA) Normal Urine Ketones 15 H Urine Occult Blood Negative Urine Nitrite Negative Urine Bilirubin Negative Urine Urobilinogen 1 H Ur Leukocyte Esterase 25 H Urine RBC 0 SEEN Urine WBC 0-5 SEEN Ur Squamous Epith Cells 0-5 SEEN Urine Bacteria RARE Urine Mucus 0 SEEN Radiography Diagnostic Testing: Clinical Impression(s) from Imaging Studies Abdomen/Pelvis CT 11/16/21 17:16 IMPRESSION: No acute intra-abdominal process. Electronically Signed: Sherry Eckert MD at 18:35 EDT , Discharge Plan Triage Chief Complaint: Abd Pain ED Provider: Gian Jeffers Dx/Rx/DC Orders Clinical Impression: Abdominal pain Instructions: ED Abdominal Pain Unkn Cause Fem Prescriptions: No Action levothyroxine [Synthroid] 75 MCG tablet 75 mcg PO DAILY RF: 0 ibuprofen 600 MG tablet 600 mg PO Q6H PRN (Reason: Pain) Qty: 60 RF: 1 fluticasone propionate 1 SPRAY spray,suspension 2 spray NASAL DAILY RF: 0 naproxen 500 MG tablet 500 mg PO BID PRN PRN (Reason: Pain Score 4-10/10) Qty: 20 RF: 0 cyclobenzaprine 10 MG tablet 10 mg PO TID PRN (Reason: Muscle Spasm) Qty: 20 RF: 0 Primary Care Provider: Gene Davis Referrals: Gene Davis MD [Primary Care Provider] - 10-14 Days if not better Activity Restrictions/Additional Instructions: Motrin and Tylenol for pain. Follow-up with your doctor if not improving. Your CAT scan and labs today were all normal. They saw your appendix and it was normal. Disposition Disposition: Home, Self Care
[2021-11-16 17:37] LABS: Mucous, Urine 0 SEEN /hpf (<or=2+); Red Blood Cells-Urine 0 SEEN /hpf (0-5)
[2021-11-16 17:38] LABS: Color, Urine Yellow (Yellow); Glucose, Dipstick Normal (Normal); Ketone-Dipstick 15 mg/dl (Negative); Leukocyte Esterase-Dipstick 25 /ul (Negative); Nitrite-Dipstick Negative (Negative); Occult Blood-Urine Negative /ul (Negative); Protein-Dipstick 15 mg/dl (Negative); Urine Bilirubin Dipstick Negative (Negative); Urine Clarity Sl. Cloudy (Clear); Urine Urobilinogen 1 mg/dl (Normal)
[2021-11-16 17:52] LABS: Absolute Lymphocyte Count 2.25 X10^3/uL (0.83-4.51); Absolute Neutrophil Count 6.3 X10^3/uL (2.0-7.7); Basophil# 0.02 X10^3/uL; Basophil% 0.2 % (0-1); Eosinophil# 0.11 X10^3/uL; Eosinophils% 1.2 % (0-5); Hematocrit 43.3 % (37-47); Hemoglobin 15.2 g/dL (12.0-15.0); Lymphocyte # 2.25 X10^3/ul (0.83-4.51); Lymphocyte % 24.3 % (19-41); Mean Corp Hgb Conc 35.1 g/dL (32-36); Mean Corpuscular Hgb 30.3 pg (27.0-32.0); Mean Corpuscular Volume 86.3 fL (81-99); Mean Platelet Vol. 10.5 fl (6.2-12.0); Monocyte# 0.52 X10^3/uL; Monocyte% 5.6 % (0-10); NRBC Flagged by Analyzer 0 % (0-5); Neutrophil # 6.32 X10^3/uL (2.7-7.7); Neutrophil % 68.3 % (47-70); Platelet Count 224 K/mm3 (150-450); RBC Distribution Width CV 12.4 % (11.6-14.6); RBC Distribution Width SD 38.7 fl (35.1-43.9); Red Blood Count 5.02 M/mm3 (4.2-5.4); White Blood Count 9.3 K/mm3 (4.4-11.0)
[2021-11-16 17:57] LABS: Bacteria RARE /hpf (None Seen); Squamous Epithelial Cells - UA 0-5 SEEN /hpf (5-10); White Blood Cells 0-5 SEEN /hpf (0-5)
[2021-11-16 17:59] LABS: ALB/GLOB Ratio 1.1 RATIO (0.9-2.4); AST(SGOT) 9 U/L (15-37); Alanine Aminotransfer ALT/SGPT 16 U/L (13-56); Albumin, Serum 4.2 g/dL (3.2-5.0); Alkaline Phosphatase 70 U/L (45-117); Anion Gap 6 (5-15); BUN 11 mg/dL (7-18); BUN/Creat Ratio 14.1 RATIO (10-20); Chloride 104 mmol/L (98-107); Creatinine, Serum 0.78 mg/dL (0.55-1.02); EST Glomerular Filtration Rate 85 mL/min (>60); Est Glom Filt Rate - Afr Amer 103 mL/min (>60); Estimated Creatinine Clearance 81.96 ml/min; Globulin 3.7 g/dL (2.2-4.2); Glucose 92 mg/dL (74-106); Potassium 3.2 mmol/L (3.5-5.1); Protein, Total 7.9 g/dL (6.4-8.2); Sodium Level 138 mmol/L (136-145)
== END 2021-11-16 19:17 | disposition home or self-care (01) ==
PROVIDERS: Emergency Provider Emergency Medicine; PCP Family Medicine; Visit Provider Emergency Medicine
DX: R10.31 Right lower quadrant pain (principal); E66.9 Obesity, unspecified; Z79.899 Other long term (current) drug therapy
CPT/HCPCS: 74177; 80053; 81001; 85025; 99283; Q9967; A4216

== ENCOUNTER → 2021-12-21 | Outpatient (CLI) | payer OTHER, SELFPAY ==
[2021-12-21 12:03] LABS: Anion Gap 6 (5-15); BUN 11 mg/dL (7-18); BUN/Creat Ratio 15.3 RATIO (10-20); Calcium,Total 9.1 mg/dL (8.5-10.1); Chloride 104 mmol/L (98-107); Creatinine, Serum 0.72 mg/dL (0.55-1.02); EST Glomerular Filtration Rate 93 mL/min (>60); Est Glom Filt Rate - Afr Amer 113 mL/min (>60); Glucose 87 mg/dL (74-106); Potassium 3.9 mmol/L (3.5-5.1); Sodium Level 137 mmol/L (136-145); Thyroid Stim Hormone (TSH) 1.17 uIU/mL (0.358-3.74)
== END | disposition home or self-care (01) ==
PROVIDERS: PCP Family Medicine
DX: E03.9 Hypothyroidism, unspecified (principal)
CPT/HCPCS: 36415; 80048; 84443

== ENCOUNTER → 2022-08-30 | Outpatient (CLI) | payer OTHER, SELFPAY ==
[2022-08-30 18:49] LABS: Anion Gap 7 (5-15); BUN 16 mg/dL (7-18); BUN/Creat Ratio 26.9 RATIO (10-20); Calcium,Total 9.1 mg/dL (8.5-10.1); Chloride 104 mmol/L (98-107); Cholesterol 142 mg/dL (200); EST Glomerular Filtration Rate 115 mL/min (>60); Est Glom Filt Rate - Afr Amer 139 mL/min (>60); Free T3 2.3 pg/mL (2.18-3.98); Glucose 90 mg/dL (74-106); High Density Lipoprotein 44 mg/dL; Potassium 3.7 mmol/L (3.5-5.1); Sodium Level 139 mmol/L (136-145); Thyroid Stim Hormone (TSH) 3.91 uIU/mL (0.358-3.74); Triglycerides 134 mg/dL; Very Low Density Lipoprotein 27 mg/dL (5-40)
== END | disposition home or self-care (01) ==
LOC: MFPLAB 16:28
PROVIDERS: PCP Family Medicine; Referring Provider Family Medicine; Visit Provider Family Medicine
DX: Z00.00 Encounter for general adult medical examination without abnormal findings (principal); E03.9 Hypothyroidism, unspecified
CPT/HCPCS: 36415; 80048; 80061; 84439; 84443; 84481

== ENCOUNTER 2022-11-25 18:46 | Observation (INO) | payer OTHER, SELFPAY ==
[2022-11-25 18:47] VITALS: BP 147/88; PULSE 80; RESP 16; TEMP 36.2; O2SAT 100; BMI 22.5
--- NOTE | 2022-11-25 19:04 | CT_ITS ---
STUDY: CT ABDOMEN AND PELVIS WITH CONTRAST REASON FOR EXAM: Female, 47 years old. RUQ abdominal pain RADIATION DOSAGE (If Supplied By Facility): CTDIvol = ( 9.21 ) mGy, DLP = ( 425.30 ) mGycm TECHNIQUE: Transaxial images were obtained from the dome of the diaphragm to the symphysis pubis without oral contrast. IV 100mL Isovue-370 was administered. Sagittal and coronal images were reconstructed. Individualized dose optimization techniques were used for this CT. COMPARISON: 11/08/2021 FINDINGS: The visualized lung bases are unremarkable. The visualized portions of the heart are within normal limits. Normal liver. Normal gallbladder and extrahepatic biliary system. Normal spleen. Normal pancreas. Normal bilateral adrenal glands. Normal right kidney. Normal left kidney. Normal visualized stomach. Normal small intestine. Normal colon. The appendix is visualized and appears normal. Normal abdominal aorta. Normal inferior vena cava. Normal retroperitoneum. Normal urinary bladder. Normal abdominal wall. Normal osseous structures. CT/Abdomen/Pelvis W IV Cont ONLY IMPRESSION: Normal enhanced CT of the abdomen and pelvis. Electronically Signed: Andrey Caldera MD at 20:41 EDT ,
[2022-11-25] MEDS: Morphine 4 MG/ML Syringe IV (19:16)
[2022-11-25] MEDS: Ondansetron 4 MG/2 ML Vial IV ×2 (19:16→21:49)
[2022-11-25] MEDS: Famotidine 200 MG/20 ML MDV 20 MG in 0.9% Normal Saline (Pres. free 8 ML 300 MG IV (19:16)
[2022-11-25 19:18] LABS: Mucous, Urine 0 SEEN /hpf (<or=2+)
[2022-11-25 19:19] LABS: Color, Urine Yellow (Yellow); Glucose, Dipstick Normal (Normal); Ketone-Dipstick 5 mg/dl (Negative); Leukocyte Esterase-Dipstick 500 /ul (Negative); Nitrite-Dipstick Negative (Negative); Occult Blood-Urine 150 /ul (Negative); Protein-Dipstick 15 mg/dl (Negative); Urine Bilirubin Dipstick Negative (Negative); Urine Clarity Clear (Clear); Urine Urobilinogen Normal (Normal)
[2022-11-25 19:21] LABS: Absolute Lymphocyte Count 1.02 X10^3/uL (0.83-4.51); Basophil# 0.02 X10^3/uL; Basophil% 0.2 % (0-1); Eosinophil# 0.15 X10^3/uL; Eosinophils% 1.4 % (0-5); Hematocrit 42.1 % (37-47); Hemoglobin 13.7 g/dL (12.0-15.0); Lymphocyte # 1.02 X10^3/ul (0.83-4.51); Lymphocyte % 9.5 % (19-41); Mean Corp Hgb Conc 32.5 g/dL (32-36); Mean Corpuscular Hgb 29.6 pg (27.0-32.0); Mean Corpuscular Volume 90.9 fL (81-99); Mean Platelet Vol. 10.5 fl (6.2-12.0); Monocyte# 0.46 X10^3/uL; Monocyte% 4.3 % (0-10); NRBC Flagged by Analyzer 0 % (0-5); Neutrophil # 9.04 X10^3/uL (2.7-7.7); Neutrophil % 84.1 % (47-70); Platelet Count 190 K/mm3 (150-450); RBC Distribution Width CV 12.3 % (11.6-14.6); RBC Distribution Width SD 40.6 fl (35.1-43.9); Red Blood Count 4.63 M/mm3 (4.2-5.4); White Blood Count 10.7 K/mm3 (4.4-11.0)
[2022-11-25 19:27] LABS: Red Blood Cells-Urine 0-5 SEEN /hpf (0-5); Squamous Epithelial Cells - UA 0-5 SEEN /hpf (5-10); White Blood Cells 0-5 SEEN /hpf (0-5)
[2022-11-25 19:28] LABS: Bacteria 1+ /hpf (None Seen)
[2022-11-25 19:35] LABS: Internal QC Validated? YES +Cl - CLEAR BKGD; Pregnancy, Serum, hCG Quali. NEGATIVE Negative
[2022-11-25 19:38] LABS: ALB/GLOB Ratio 1.2 RATIO (0.9-2.4); AST(SGOT) 21 U/L (15-37); Alanine Aminotransfer ALT/SGPT 23 U/L (13-56); Albumin, Serum 3.6 g/dL (3.2-5.0); Alkaline Phosphatase 56 U/L (45-117); Anion Gap 7 (5-15); BUN 9 mg/dL (7-18); BUN/Creat Ratio 12.7 RATIO (10-20); Calcium,Total 8.4 mg/dL (8.5-10.1); Chloride 110 mmol/L (98-107); Creatinine, Serum 0.71 mg/dL (0.55-1.02); EST Glomerular Filtration Rate 94 mL/min (>60); Est Glom Filt Rate - Afr Amer 114 mL/min (>60); Estimated Creatinine Clearance 89.09 ml/min; Globulin 3.1 g/dL (2.2-4.2); Glucose 143 mg/dL (74-106); Lipase 24 U/L (13-75); Potassium 3.8 mmol/L (3.5-5.1); Protein, Total 6.7 g/dL (6.4-8.2); Sodium Level 142 mmol/L (136-145)
--- NOTE | 2022-11-25 19:52 | EDS_ITS ---
HPI <JOHNIE Vo - Last Filed: 11/25/22 21:16> HPI - GI History of Present Illness Chief Complaint: Abd Pain Narrative Narrative: Patient is a 47-year-old female with no significant medical problems who does not take any medication daily presents to the emergency department with upper epigastric pain that began right after eating. Patient states he was at a restaurant, eating burgers and fries, directly right after eating, she developed pain to her upper epigastric area that was sharp went around her abdomen like a band and then straight to to her back. She then had 1 episode of vomiting, however this did not relieve her pain. She states that she was unable to stand up straight, she has worsening pain with taking a deep breath, and she is here for evaluation. Denies any blood in stool, blood in vomit PFSH <JOHNIE Vo - Last Filed: 11/25/22 21:16> PFS Medical History (Updated 11/25/22 @ 22:[address] Bertha Hurley MD) Allergic rhinitis Fibromyalgia Gastroesophageal reflux disease History of venous thromboembolism Hypothyroid Home Medications levothyroxine 75 mcg tablet (Synthroid) 75 mcg PO DAILY 10/31/17 [History Last Taken 11/07/17 06:00] ibuprofen 600 mg tablet 600 mg PO Q6H PRN Pain #60 tabs 11/08/17 [Rx Last Taken Unknown] cyclobenzaprine 10 mg tablet 10 mg PO TID PRN Muscle Spasm #20 tabs 08/07/19 [Rx Last Taken Unknown] fluticasone propionate 50 mcg/actuation nasal spray,suspension 2 spray NASAL DAILY 08/07/19 [History Last Taken Unknown] naproxen 500 mg tablet 500 mg PO BID PRN PRN Pain Score 4-10/10 #20 tabs 08/07/19 [Rx Last Taken Unknown] Allergy/AdvReac Type Severity Reaction Status Date / Time codeine Allergy Hives Verified 11/16/21 17:16 Family History (Updated 11/25/22 @ 22:[address] Bertha Hurley MD) Mother Diabetes Hypertension Thyroid disorder Fibromyalgia Father Hypertension Surgical History (Updated 11/25/22 @ 22:[address] Bertha Hurley MD) H/O section History of bilateral salpingectomy History of bilateral tubal ligation History of bladder surgery History of hysterectomy S/P ureteral stent placement Social History (Updated 11/25/22 @ 22:[address] Bertha Hurley MD) household members: spouse Smoking Status: Never smoker alcohol intake: current alcohol intake frequency: holidays/special occasions only substance use type: does not use ROS <JOHNIE Vo - Last Filed: 11/25/22 21:16> ROS ED ROS Narrative Constitutional: Negative for fever, chills, weight loss, weakness Eyes: Negative for vision loss, vision change, double vision ENT: Negative for any sore throat, ear pain, congestion Cardiovascular: Negative for any chest pain, tightness, palpitations Respiratory: Negative for any cough, sputum production, hemoptysis, dyspnea, dyspnea on exertion, orthopnea Gastrointestinal: Negative for any diarrhea, constipation, blood in stool, blood in vomit. Positive for abdominal pain, nausea, vomiting : Negative for any urinary frequency, dysuria, retention, blood in urine Muscle skeletal: Negative for any muscle joint pain, stiffness, myalgias, arthralgias, neck pain, back pain Neurological: Negative for any headache, syncope, numbness or tingling, dizziness Skin: Negative for any rashes, lumps, itching, abrasions, lacerations Psychiatric: Negative for any depression, anxiety, stress, suicidal ideation, homicidal ideation Hematologic: Negative for any easy bruising, excessive bruising, easy bleeding Allergies: Negative for any eczema, hives, rash EXAM <JOHNIE Vo - Last Filed: 11/25/22 21:16> Physical Exam Narrative Exam Narrative: Vital signs reviewed. Patient on initial evaluation appears to be in mild distress secondary to upper epigastric pain. HEET: Head normocephalic atraumatic, TMs clear bilaterally. Posterior pharynx is clear, moist mucous membranes. Nares clear bilaterally. Neck: Supple with no lymphadenopathy or tenderness. No signs of meningismus, negative jolt sign. Cardiac: Regular rate and rhythm no murmurs gallops or rubs, equal peripheral pulses bilaterally. Respiratory: Lungs clear to auscultation bilaterally. No chest tenderness. Abdomen: Soft, patient has pain to both the right upper, left upper abdomen. Patient has a positive Friedman sign.. No abdominal bruit or pulsatile masses. No hepatosplenomegaly no peritoneal signs. Active bowel sounds in all quadrants. Extremities: No peripheral edema, no signs of gross trauma or deformity. Active full range of motion of all extremities. Neuro: Cranial nerves II through XII intact, no focal neurological deficits. Skin: Clean dry and intact with no rash, purpura, petechiae, vesicles or pustules. Backs/flank: No CVA tenderness, no midline spinal tenderness, no deformity. Psych: Normal mood and affect. No SI, HI or acute psychosis. Const Vital Signs: 11/25/22 18:47 Temperature 97.1 F L Temperature Source Temporal Pulse Rate 80 Respiratory Rate 16 Blood Pressure 147/88 H Blood Pressure Mean 107 Pulse Ox 100 Oxygen Delivery Method Room Air <Dr. Noel Martins DO - Last Filed: 11/25/22 22:34> Physical Exam Const Vital Signs: 11/25/22 18:47 Temperature 97.1 F L Temperature Source Temporal Pulse Rate 80 Respiratory Rate 16 Blood Pressure 147/88 H Blood Pressure Mean 107 Pulse Ox 100 Oxygen Delivery Method Room Air MDM <JOHNIE Vo - Last Filed: 11/25/22 21:16> [facility] Lab Data Labs: Laboratory Results - last 24 hr 11/25/22 11/25/22 11/25/22 19:15 19:15 19:15 WBC 10.7 RBC 4.63 Hgb 13.7 Hct 42.1 MCV 90.9 MCH 29.6 MCHC 32.5 RDW Std Deviation 40.6 RDW Coeff of Vahe 12.3 Plt Count 190 MPV 10.5 Immature Gran % (Auto) 0.500 Neut % (Auto) 84.1 H Lymph % (Auto) 9.5 L [place] % (Auto) 4.3 Eos % (Auto) 1.4 Baso % (Auto) 0.2 Absolute Neuts (auto) 9.0 H Absolute Lymphs (auto) 1.02 Nucleated RBC % 0 Sodium 142 Potassium 3.8 Chloride 110 H Carbon Dioxide 25.0 Anion Gap 7 BUN 9 Creatinine 0.71 Estim Creat Clear Calc 89.09 Est GFR (MDRD) Af Amer 114 Est GFR (MDRD) Non-Af 94 BUN/Creatinine Ratio 12.7 Glucose 143 H Calcium 8.4 L Total Bilirubin 0.40 AST 21 ALT 23 Alkaline Phosphatase 56 Total Protein 6.7 Albumin 3.6 Globulin 3.1 Albumin/Globulin Ratio 1.2 Lipase 24 Serum , Qual NEGATIVE Urine Color Urine Clarity Urine pH Ur Specific [place] Urine Protein Urine Glucose (UA) Urine Ketones Urine Occult Blood Urine Nitrite Urine Bilirubin Urine Urobilinogen Ur Leukocyte Esterase Urine RBC Urine WBC Ur Squamous Epith Cells Urine Bacteria Urine Mucus 11/25/22 19:15 WBC RBC Hgb Hct MCV MCH MCHC RDW Std Deviation RDW Coeff of [place] Plt Count MPV Immature Gran % (Auto) Neut % (Auto) Lymph % (Auto) [place] % (Auto) Eos % (Auto) Baso % (Auto) Absolute Neuts (auto) Absolute Lymphs (auto) Nucleated RBC % Sodium Potassium Chloride Carbon Dioxide Anion Gap BUN Creatinine Estim Creat Clear Calc Est GFR (MDRD) Af Amer Est GFR (MDRD) Non-Af BUN/Creatinine Ratio Glucose Calcium Total Bilirubin AST ALT Alkaline Phosphatase Total Protein Albumin Globulin Albumin/Globulin Ratio Lipase Serum , Qual Urine Color Yellow Urine Clarity Clear Urine pH 6.0 Ur Specific [place] 1.020 Urine Protein 15 H Urine Glucose (UA) Normal Urine Ketones 5 H Urine Occult Blood 150 H Urine Nitrite Negative Urine Bilirubin Negative Urine Urobilinogen Normal Ur Leukocyte Esterase 500 H Urine RBC 0-5 SEEN Urine WBC 0-5 SEEN Ur Squamous Epith Cells 0-5 SEEN Urine Bacteria 1+ Urine Mucus 0 SEEN Radiography Diagnostic Testing: Clinical Impression(s) from Imaging Studies Abdomen/Pelvis CT 11/25/22 19:04 IMPRESSION: Normal enhanced CT of the abdomen and pelvis. Electronically Signed: Andrey Caldera MD at 20:41 EDT , Treatment and Re-Evaluation :: Patient arrives in mild distress secondary to upper abdominal pain. Patient presents to the emergency department with upper abdominal pain that was worse after eating a burger and fries this evening. She did have 1 episode of nausea and vomiting. Patient did receive a full upper abdominal work-up including laboratory values, CT scan with IV contrast concerning for acute cholecystitis, pancreatitis, choledocholithiasis, bowel obstruction.Patient's laboratory values show a normal CBC, chemistries were grossly unremarkable patient is not pr egnant, patient's liver enzymes were unremarkable. She did receive a CT scan with IV contrast. This showed a normal enhanced CT of the abdomen and pelvis. No evidence of any cholecystitis, bowel obstruction. On reassessment, the patient was feeling slightly better. Patient did receive IV fluids, IV morphine, IV Zofran and IV Pepcid. Patient on reassessment was pain-free. She looks much better. At this time, she had had GERD, gastritis. She will follow- up closely outpatient. She will take [id number] medication. She was given strict return precautions. I spoke with the patient, the patient's , they were all in agreement, all questions answered. Stable for discharge <Dr. Noel Martins, DO - Last Filed: 11/25/22 22:34> [facility] Lab Data Labs: Laboratory Results - last 24 hr 11/25/22 11/25/22 11/25/22 19:15 19:15 19:15 WBC 10.7 RBC 4.63 Hgb 13.7 Hct 42.1 MCV 90.9 MCH 29.6 MCHC 32.5 RDW Std Deviation 40.6 RDW Coeff of [place]he 12.3 Plt Count 190 MPV 10.5 Immature Gran % (Auto) 0.500 Neut % (Auto) 84.1 H Lymph % (Auto) 9.5 L [place] % (Auto) 4.3 Eos % (Auto) 1.4 Baso % (Auto) 0.2 Absolute Neuts (auto) 9.0 H Absolute Lymphs (auto) 1.02 Nucleated RBC % 0 Sodium 142 Potassium 3.8 Chloride 110 H Carbon Dioxide 25.0 Anion Gap 7 BUN 9 Creatinine 0.71 Estim Creat Clear Calc 89.09 Est GFR (MDRD) Af Amer 114 Est GFR (MDRD) Non-Af 94 BUN/Creatinine Ratio 12.7 Glucose 143 H Calcium 8.4 L Total Bilirubin 0.40 AST 21 ALT 23 Alkaline Phosphatase 56 Total Protein 6.7 Albumin 3.6 Globulin 3.1 Albumin/Globulin Ratio 1.2 Lipase 24 Serum , Qual NEGATIVE Urine Color Urine Clarity Urine pH Ur Specific [place] Urine Protein Urine Glucose (UA) Urine Ketones Urine Occult Blood Urine Nitrite Urine Bilirubin Urine Urobilinogen Ur Leukocyte Esterase Urine RBC Urine WBC Ur Squamous Epith Cells Urine Bacteria Urine Mucus 11/25/22 19:15 WBC RBC Hgb Hct MCV MCH MCHC RDW Std Deviation RDW Coeff of [place] Plt Count MPV Immature Gran % (Auto) Neut % (Auto) Lymph % (Auto) [place] % (Auto) Eos % (Auto) Baso % (Auto) Absolute Neuts (auto) Absolute Lymphs (auto) Nucleated RBC % Sodium Potassium Chloride Carbon Dioxide Anion Gap BUN Creatinine Estim Creat Clear Calc Est GFR (MDRD) Af Amer Est GFR (MDRD) Non-Af BUN/Creatinine Ratio Glucose Calcium Total Bilirubin AST ALT Alkaline Phosphatase Total Protein Albumin Globulin Albumin/Globulin Ratio Lipase Serum , Qual Urine Color Yellow Urine Clarity Clear Urine pH 6.0 Ur Specific [place] 1.020 Urine Protein 15 H Urine Glucose (UA) Normal Urine Ketones 5 H Urine Occult Blood 150 H Urine Nitrite Negative Urine Bilirubin Negative Urine Urobilinogen Normal Ur Leukocyte Esterase 500 H Urine RBC 0-5 SEEN Urine WBC 0-5 SEEN Ur Squamous Epith Cells 0-5 SEEN Urine Bacteria 1+ Urine Mucus 0 SEEN Radiography Diagnostic Testing: Clinical Impression(s) from Imaging Studies Abdomen/Pelvis CT 11/25/22 19:04 IMPRESSION: Normal enhanced CT of the abdomen and pelvis. Electronically Signed: Andrey Caldera MD at 20:41 EDT , Treatment and Re-Evaluation :: Patient arrives in mild distress secondary to upper abdominal pain. Patient presents to the emergency department with upper abdominal pain that was worse after eating a burger and fries this evening. She did have 1 episode of nausea and vomiting. Patient did receive a full upper abdominal work-up including laboratory values, CT scan with IV contrast concerning for acute cholecystitis, pancreatitis, choledocholithiasis, bowel obstruction.Patient's laboratory values show a normal CBC, chemistries were grossly unremarkable patient is not , patient's liver enzymes were unremarkable. She did receive a CT scan with IV contrast. This showed a normal enhanced CT of the abdomen and pelvis. No evidence of any cholecystitis, bowel obstruction. On reassessment, the patient was feeling slightly better. Patient did receive IV fluids, IV morphine, IV Zofran and IV Pepcid. Patient on reassessment was pain-free. She looks much better. At this time, she had had GERD, gastritis. She will follow- up closely outpatient. She will take [id number] medication. She was given strict return precautions. I spoke with the patient, the patient's , they were all in agreement, all questions answered. Stable for discharge 2129 patient was going to be discharged. Patient was pain-free at discharge. When patient went to go sit up, she had nausea, and a return of the pain to the right and left upper quadrant. Patient was then given a second dose of Zofran, also given the upper GI cocktail. Patient was observed for another 30 to 45 minutes. Patient was then going to be set up again, and she had a return of the pain to midepigastric area. Patient's labs and CT of the abdomen pelvis were r eviewed again with the patient. Patient then told me she has had a 40 pound weight loss in the past 5 to 6 months. She has been trying to lose some weight, she is been going to [employer] and exercising. Patient also says that she has a full sensation relatively easily in the last 2 or 3 months. Patient has no chest pain or tightness. Not short of breath. Patient will be admitted for observation for intractable abdominal pain. [address] Hurley, she is accepting admission. Discharge Plan Triage Chief Complaint: Abd Pain ED Midlevel Provider: Gene Lee ED Provider: Noel Martins Dx/Rx/DC Orders Clinical Impression: Gastritis, Gastroesophageal reflux disease Instructions: ED GERD (Adult), ED Gastritis (Adult) Prescriptions: No Action levothyroxine [Synthroid] 75 MCG tablet 75 mcg PO DAILY ibuprofen 600 MG tablet 600 mg PO Q6H PRN (Reason: Pain) Qty: 60 1RF fluticasone propionate 1 SPRAY spray,suspension 2 spray NASAL DAILY naproxen 500 MG tablet 500 mg PO BID PRN PRN (Reason: Pain Score 4-10/10) Qty: 20 0RF cyclobenzaprine 10 MG tablet 10 mg PO TID PRN (Reason: Muscle Spasm) Qty: 20 0RF Primary Care Provider: Gene Davis Referrals: Gene Davis MD [Primary Care Provider] - Activity Restrictions/Additional Instructions: Please use [id number] medicines Disposition Disposition: Acute Care Hospital [facility]
[2022-11-25] MEDS: Mag Hydrox/Al Hydrox/Simeth 30 ML UDC PO (21:49)
[2022-11-25] MEDS: 0.9% Normal Saline 1,000 ML 100 ML IV (22:26)
[2022-11-25] MEDS: HYDROmorphone 0.5 MG/0.5 ML SYRINGE IV (22:26)
[2022-11-25 22:30] VITALS: BP 112/78; PULSE 72; RESP 18; O2SAT 100
--- NOTE | 2022-11-25 22:34 | PCM.HP.STD ---
HPI - General General Date of Admission: 11/25/22 Date of Service: 11/25/22 Chief Complaint: Abdominal pain, N/V. 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 She reports loosing ~ 40 lbs since the start of the year and has purposely done so reports going to the gym as well. She also reports several month history of a fullness sensation following oral intake. In the ED upon arrival initially pain 10 of 10 in severity aching throbbing and sharp especially with movement, worse on the drive but following interventions including most recently Dilaudid patient notes pain is improved and physical examination per hospitalist without marked rebound or guarding. Patient does admit that at the end of 2019 she has been dealing with the illness of her mother who eventually passed from pancreatic cancer and she was not taking care of herself and had even forgotten to take her levothyroxine medication with PCP follow-up and eventually thyroid function studies taken which were reportedly normal and she is been off this medication since. She had already lost notable weight at that time and had not been trying but again she was under a lot of stress and intake was decreased. No specific reported night sweats or fevers. She does report having normal bowel movements including the day prior to current presentation with normal appropriate appearing brown stool and normal texture. Work-up in the ED included T97.1, heart rate 80, BP 147 or 88, respiratory rate 16, 100% on room air, CBC with WC 10.7, hemoglobin 13.7, platelet 190 with left shift, CMP with chloride 110, glucose 143, calcium 8.4 otherwise unremarkable, lipase 24, serum negative, urinalysis with specific remedy 1.020, protein 15, ketone 5, occult blood 150, negative nitrite, leukocyte Estrace 500 with 1+ urine bacteria, CT abdomen and pelvis with no acute intra-abdominal findings. In the ED patient had ministered Zofran 4 mg IV x2, morphine 4 mg IV x1, Dilaudid 0.5 mg IV x1, GI cocktail. Following these interventions patient became pain-free but when she started to leave she noted onset recurrent pain with attempts to get up and move. [facility]LY [facility] Medical History (Updated 11/25/22 @ 23:[address] Bertha Hurley MD) Allergic rhinitis Fibromyalgia Gastroesophageal reflux disease History of venous thromboembolism Hypothyroid Home Medications NK 11/25/22 [History Last Taken Unknown] Allergy/AdvReac Type Severity Reaction Status Date / Time codeine Allergy Hives Verified 11/16/21 17:16 Family History (Updated 11/25/22 @ 22:[address] Bertha Hurley MD) Mother Diabetes Hypertension Thyroid disorder Fibromyalgia Father Hypertension Surgical History (Updated 11/25/22 @ 22:[address] Bertha Hurley MD) H/O section History of bilateral salpingectomy History of bilateral tubal ligation History of bladder surgery History of hysterectomy S/P ureteral stent placement Social History (Updated 11/25/22 @ 22:[address] Bertha Hurley MD) household members: spouse Smoking Status: Never smoker alcohol intake: current alcohol intake frequency: holidays/special occasions only substance use type: does not use ROS ROS Narrative Admission Review of Systems: CONSTITUTIONAL: No fever, chills, + weight loss, weakness or fatigue. HEENT: Eyes: No visual loss, blurred vision, double vision or yellow sclerae. Ears, Nose, Throat: No hearing loss, sneezing, congestion, runny nose or sore throat. SKIN: No rash or itching, lesions, wounds. CARDIOVASCULAR: No chest pain, chest pressure or chest discomfort, palpitations, edema, orthopnea, syncopal events. RESPIRATORY: No shortness of breath, cough or sputum, wheezing, hemoptysis. GASTROINTESTINAL: + Early satiety, anorexia, nausea, vomiting, abdominal pain. No constipation or diarrhea, melena, BRBPR. GENITOURINARY: No dysuria, frequency, urgency or retention. NEUROLOGICAL: No headache, dizziness, syncope, paralysis, ataxia, numbness or tingling in the extremities, focal weakness, change in bowel or bladder control, seizure. MUSCULOSKELETAL: No muscle, back pain, joint pain or stiffness. HEMATOLOGIC: No anemia, bleeding or bruising. LYMPHATICS: No enlarged nodes. No history of splenectomy. PSYCHIATRIC: + history of depression or anxiety. ENDOCRINOLOGIC: No reports of sweating, cold or heat intolerance. No polyuria or polydipsia. ALLERGIES: + history of hives, rhinitis. Vital Signs Vital Signs Vital Signs: 11/25/22 18:47 11/25/22 22:30 Temperature 97.1 F L Temperature Source Temporal Pulse Rate 80 72 Respiratory Rate 16 18 Blood Pressure 147/88 H 112/78 Blood Pressure Mean 107 89 Pulse Ox 100 100 Oxygen Delivery Method Room Air Room Air Weight Weight: 135 lb 3.2 oz Body Mass Index (BMI) 22.5 Physical Exam Narrative Physical Examination: General: Awake, alert, oriented x 3 and cooperative, laying upright in the ED bed, fatigued, initially reports discomfort ongoing but recent Dilaudid and further evaluation patient seems improved and able to tolerate abdominal exam. Skin: Normal color, normal turgor, no icterus, no cyanosis. HEENT: AT/NC, EOMI, PERRLA, dry MM, no carotid bruits or JVD noted. Lungs: CTA bilaterally, moderate effort, mild decrease BL bases, no rales, ronchi or wheezing. Heart: Currently regular rate and rhythm; no gallop, rub audible. Abdomen: Soft, with distraction and also with manual palpation no rebound or guarding and no marked pain at this time but suspect patient has been improved given recent Dilaudid administration, no marked distention, notable hyperactive diffuse bowel sounds, no obvious HSM. Extremities: No cyanosis, clubbing, or edema. Neurological: Patient awake, alert, oriented as noted, cognitive function intact; pupils equally reactive to light and accommodation, cranial nerves II-XII grossly normal, moving all 4 extremities, no focal deficits, strength moderately global decrease secondary to acute complaints. Psychiatric: Affect appears fatigued, no acute evidence of depressive or anxiety feelings but from review of prior records has been on antidepressant medications previous. Results Lab / Micro Data Result Diagrams: 11/25/22 19:15 11/25/22 19:15 Labs: Laboratory Results - last 24 hr 11/25/22 19:15: WBC 10.7, RBC 4.63, Hgb 13.7, Hct 42.1, MCV 90.9, MCH 29.6, MCHC 32.5, RDW Std Deviation 40.6, RDW Coeff of Vahe 12.3, Plt Count 190, MPV 10.5, Immature Gran % (Auto) 0.500, Neut % (Auto) 84.1 H, Lymph % (Auto) 9.5 L, [place] % (Auto) 4.3, Eos % (Auto) 1.4, Baso % (Auto) 0.2, Absolute Neuts (auto) 9.0 H, Absolute Lymphs (auto) 1.02, Nucleated RBC % 0 11/25/22 19:15: Sodium 142, Potassium 3.8, Chloride 110 H, Carbon Dioxide 25.0, Anion Gap 7, BUN 9, Creatinine 0.71, Estim Creat Clear Calc 89.09, Est GFR (MDRD) Af Amer 114, Est GFR (MDRD) Non-Af 94, BUN/Creatinine Ratio 12.7, Glucose 143 H, Calcium 8.4 L, Total Bilirubin 0.40, AST 21, ALT 23, Alkaline Phosphatase 56, Total Protein 6.7, Albumin 3.6, Globulin 3.1, Albumin/Globulin Ratio 1.2, Lipase 24 11/25/22 19:15: Serum , Qual NEGATIVE 11/25/22 19:15: Urine Color Yellow, Urine Clarity Clear, Urine pH 6.0, Ur Specific [place] 1.020, Urine Protein 15 H, Urine Glucose (UA) Normal, Urine Ketones 5 H, Urine Occult Blood 150 H, Urine Nitrite Negative, Urine Bilirubin Negative, Urine Urobilinogen Normal, Ur Leukocyte Esterase 500 H, Urine RBC 0-5 SEEN, Urine WBC 0-5 SEEN, Ur Squamous Epith Cells 0-5 SEEN, Urine Bacteria 1+, Urine Mucus 0 SEEN Radiology Impression Abdomen/Pelvis CT 11/25/22 19:04 IMPRESSION: Normal enhanced CT of the abdomen and pelvis. 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 #1. Intractable Abdominal Pain, Nausea, Emesis with reported weight loss, early satiety, possibly secondary to GERD/Gastritis versus possible Biliary Colic/Cholelithiasis (CT not marked appearing however): Will admit to MS, will maintain NPO given discomfort, will maintain on IV PPI, will obtain RUQ US to be cautious, will also request GI consultation for consider upper endoscopy given epigastric discomfort, fullness sensation and weight loss although in part on purpose especially if RUQ US unremarkable, will maintain on IVFs, PRN pain/antiemetic regimen. If concerning findings on RUQ US would request Surgery involvement. Given weight loss and decreased intake although again some component of altered lifestyle purposely will also request involvement of nutrition. #2. Hyperglycemia, mild: Admission glucose 143, suspect stress response, will obtain hemoglobin A1c to be cautious. #3. History VTE: Patient with history of DVT as well as PE following complicated remotely, not chronically anticoagulated. #4. Hypothyroidism: Patient reported that she had been on levothyroxine since she was 18 with Bc history however 04/2022 with increased stress and activity of caring for her mother who eventually passed from pancreatic cancer she had unfortunately forgot to take several of her medications including her levothyroxine with eventually follow-up PCP evaluation with normal labs. She has not had these done since per her report, will obtain TSH and free T4 to be cautious #5. Allergic rhinitis: We will continue patient on fluticasone regimen. #6. GERD: We will maintain on PPI. #7. DVT prophylaxis: SCDs given pending further evaluation #1 in case of intervention needs. #8. CODE STATUS: Full code. Admission Evaluation Time spent evaluating chart, patient history, patient evaluation, care planning and discussion with specialists: 60 minutes. Charges/Coding Visit Charges Inpatient E&M: 08239 Init Hosp L2
--- NOTE | 2022-11-25 22:38 | US_ITS ---
STUDY: ABDOMINAL ULTRASOUND - RIGHT UPPER QUADRANT REASON FOR VISIT: Female, 47 years old RUQ pain TECHNIQUE: Ultrasound evaluation of the right upper quadrant was performed with real-time and static nam-scale imaging. TECHNICAL QUALITY: Adequate. COMPARISON: None. FINDINGS: Liver: The liver measures 15.5 cm. There is normal echogenicity of the liver. The bile ducts are within normal limits. There is hepatic color flow. The direction of portal flow is hepatopetal. There is no demonstrated mass lesion. Gallbladder: Normal distended gallbladder. The gallbladder wall measures 2 mm. There is a negative sonographic Friedman''s sign. There is no pericholecystic fluid. There are no gallstones. Common Bile Duct (C.B.D.): The common bile duct measures 5 mm. Pancreas: Normal size of the head, body and tail of the pancreas. There is normal echogenicity of the pancreas. There is no demonstrated pancreatic mass or cyst. Right Kidney: Normal size of the right kidney. The right kidney measures 10.0 cm. Normal renal cortex. The right cortex measures 1.4 cm. There is no demonstrated renal mass or cyst. There is no right hydronephrosis. US/Gallbladder IMPRESSION: Normal right upper quadrant ultrasound examination. Electronically Signed: Andrey Caldera MD at 23:53 EDT ,
--- NOTE | 2022-11-25 23:00 | EX.PCM.CON.G ---
HPI Consult Data Date of Consult: 11/25/22 HPI Narrative Reason for Consultation: abdominal pain HPI Narrative: MARIJA HARTMAN, is a 47 F with no significant medical problems who does not take any medication daily presents to the emergency department with upper epigastric pain that began right after eating.? Patient states he was at a restaurant, eating burgers and fries, directly right after eating, she developed pain to her upper epigastric area that was sharp went around her abdomen like a band and then straight to to her back.? She then had 1 episode of vomiting, however this did not relieve her pain.? She states that she was unable to stand up straight, she has worsening pain with taking a deep breath, and she is here for evaluation.? Denies any blood in stool, blood in vomit. She underwent a ultrasound of the right lower quadrant did not show any signs of cholelithiasis or choledocholithiasis. There also was no gallbladder wall thickening. She underwent a CT scan abdomen pelvis did not show any signs of lymphadenopathy, diverticular disease, thickening of the stomach or any area of the upper GI tract. On her complete metabolic profile she was determined to have increased AST and ALT a less than 1 ratio. Alkaline phosphatase is normal and her bilirubin was normal. PFSH Medical History Allergic rhinitis Anxiety Depression Fibromyalgia Gastroesophageal reflux disease History of venous thromboembolism Hypothyroid Hypothyroidism Migraines Non-smoker Home Medications NK 11/25/22 [History Last Taken Unknown] Allergy/AdvReac Type Severity Reaction Status Date / Time codeine Allergy Hives Verified 11/16/21 17:16 Family History (Updated 11/25/22 @ 22:[address] Bertha Hurley MD) Mother Diabetes Hypertension Thyroid disorder Fibromyalgia Father Hypertension Surgical History (Updated 11/25/22 @ 22:[address] Bertha Hurley MD) H/O section History of bilateral salpingectomy History of bilateral tubal ligation History of bladder surgery History of hysterectomy S/P ureteral stent placement Social History (Updated 11/25/22 @ 22:[address] Bertha Hurley MD) household members: spouse Smoking Status: Never smoker alcohol intake: current alcohol intake frequency: holidays/special occasions only substance use type: does not use ROS ROS Narrative Admission Review of Systems: CONSTITUTIONAL: No fever, chills, + weight loss, weakness or fatigue. HEENT: Eyes: No visual loss, blurred vision, double vision or yellow sclerae. Ears, Nose, Throat: No hearing loss, sneezing, congestion, runny nose or sore throat. SKIN: No rash or itching, lesions, wounds. CARDIOVASCULAR: No chest pain, chest pressure or chest discomfort, palpitations, edema, orthopnea, syncopal events. RESPIRATORY: No shortness of breath, cough or sputum, wheezing, hemoptysis. GASTROINTESTINAL: + Early satiety, anorexia, nausea, vomiting, abdominal pain. No constipation or diarrhea, melena, BRBPR. GENITOURINARY: No dysuria, frequency, urgency or retention. NEUROLOGICAL: No headache, dizziness, syncope, paralysis, ataxia, numbness or tingling in the extremities, focal weakness, change in bowel or bladder control, seizure. MUSCULOSKELETAL: No muscle, back pain, joint pain or stiffness. HEMATOLOGIC: No anemia, bleeding or bruising. LYMPHATICS: No enlarged nodes. No history of splenectomy. PSYCHIATRIC: + history of depression or anxiety. ENDOCRINOLOGIC: No reports of sweating, cold or heat intolerance. No polyuria or polydipsia. ALLERGIES: + history of hives, rhinitis. Physical Exam Narrative Physical Examination: General: Awake, alert, oriented x 3 and cooperative, laying upright in the ED bed, fatigued, initially reports discomfort ongoing but recent Dilaudid and further evaluation patient seems improved and able to tolerate abdominal exam. Skin: Normal color, normal turgor, no icterus, no cyanosis. HEENT: AT/NC, EOMI, PERRLA, dry MM, no carotid bruits or JVD noted. Lungs: CTA bilaterally, moderate effort, mild decrease BL bases, no rales, ronchi or wheezing. Heart: Currently regular rate and rhythm; no gallop, rub audible. Abdomen: Soft, with distraction and also with manual palpation no rebound or guarding and no marked pain at this time but suspect patient has been improved given recent Dilaudid administration, no marked distention, notable hyperactive diffuse bowel sounds, no obvious HSM. Extremities: No cyanosis, clubbing, or edema. Neurological: Patient awake, alert, oriented as noted, cognitive function intact; pupils equally reactive to light and accommodation, cranial nerves II-XII grossly normal, moving all 4 extremities, no focal deficits, strength moderately global decrease secondary to acute complaints. Psychiatric: Affect appears fatigued, no acute evidence of depressive or anxiety feelings but from review of prior records has been on antidepressant medications previous. Lab / Micro Data Result Diagrams: 11/26/22 05:25 11/26/22 05:25 Labs: Laboratory Results - last 24 hr 11/25/22 19:15: WBC 10.7, RBC 4.63, Hgb 13.7, Hct 42.1, MCV 90.9, MCH 29.6, MCHC 32.5, RDW Std Deviation 40.6, RDW Coeff of Vahe 12.3, Plt Count 190, MPV 10.5, Immature Gran % (Auto) 0.500, Neut % (Auto) 84.1 H, Lymph % (Auto) 9.5 L, [place] % (Auto) 4.3, Eos % (Auto) 1.4, Baso % (Auto) 0.2, Absolute Neuts (auto) 9.0 H, Absolute Lymphs (auto) 1.02, Nucleated RBC % 0 11/25/22 19:15: Sodium 142, Potassium 3.8, Chloride 110 H, Carbon Dioxide 25.0, Anion Gap 7, BUN 9, Creatinine 0.71, Estim Creat Clear Calc 89.09, Est GFR (MDRD) Af Amer 114, Est GFR (MDRD) Non-Af 94, BUN/Creatinine Ratio 12.7, Glucose 143 H, Calcium 8.4 L, Total Bilirubin 0.40, AST 21, ALT 23, Alkaline Phosphatase 56, Total Protein 6.7, Albumin 3.6, Globulin 3.1, Albumin/Globulin Ratio 1.2, Lipase 24 11/25/22 19:15: Serum , Qual NEGATIVE 11/25/22 19:15: Urine Color Yellow, Urine Clarity Clear, Urine pH 6.0, Ur Specific [place] 1.020, Urine Protein 15 H, Urine Glucose (UA) Normal, Urine Ketones 5 H, Urine Occult Blood 150 H, Urine Nitrite Negative, Urine Bilirubin Negative, Urine Urobilinogen Normal, Ur Leukocyte Esterase 500 H, Urine RBC 0-5 SEEN, Urine WBC 0-5 SEEN, Ur Squamous Epith Cells 0-5 SEEN, Urine Bacteria 1+, Urine Mucus 0 SEEN 11/26/22 05:25: WBC 5.5, RBC 3.82 L, Hgb 11.8 L, Hct 34.0 L, MCV 89.0, MCH 30.9, MCHC 34.7 D, RDW Std Deviation 40.2, RDW Coeff of [place]he 12.4, Plt Count 150, MPV 10.9, Immature Gran % (Auto) 0.200, Neut % (Auto) 73.7 H, Lymph % (Auto) 16.6 L, [place] % (Auto) 8.0, Eos % (Auto) 1.1, Baso % (Auto) 0.4, Absolute Neuts (auto) 4.0, Absolute Lymphs (auto) 0.91, Nucleated RBC % 0 11/26/22 05:25: Sodium 142, Potassium 3.7, Chloride 112 H, Carbon Dioxide 24.0, Anion Gap 6, BUN 6 L, Creatinine 0.55, Estim Creat Clear Calc 115.01, Est GFR (MDRD) Af Amer 153, Est GFR (MDRD) Non-Af 127, BUN/Creatinine Ratio 10.9, Glucose 105, Calcium 7.7 L, Total Bilirubin 0.70, AST 123 H, ALT 139 H, Alkaline Phosphatase 51, Total Protein 5.6 L, Albumin 3.0 L, Globulin 2.6, Albumin/Globulin Ratio 1.2, TSH 4.34 H, Free T4 1.00 11/26/22 05:25: Hemoglobin A1c 4.9 Radiology Impression Abdomen/Pelvis CT 11/25/22 19:04 IMPRESSION: Normal enhanced CT of the abdomen and pelvis. Electronically Signed: Andrey Caldera MD at 20:41 EDT Reading Location ID and State: [id number] / [employer] Tel , Service support , Gallbladder Ultrasound 11/25/22 22:38 IMPRESSION: Normal right upper quadrant ultrasound examination. Electronically Signed: Andrey Caldera MD at 23:53 EDT , Assessment & Plan Assessment/Plan (1) Abdominal pain: PLAN: The differential diagnosis for her abdominal pain does include sphincter of Oddi syndrome. I will be type I or type II. Also due to diagnosis would be ischemic hepatitis associated with cramping and transient decreased blood flow at the level of the hepatic artery. I do not see any long-term damage on her imaging of her liver including ultrasound and CT scan. She is not on any control currently and does not have any history of any thromboembolic event. Also different diagnosis would be H. pylori associated gastritis, gastroparesis, small bacterial overgrowth, peptic ulcer disease. She was she should undergo an upper endoscopy to evaluate upper GI tract. She was explained alternatives, risk, benefits include understanding bleeding, infection, sepsis, perforation, need for emergent surgery . She have an ASA of 2. Charges/Coding Visit Charges Inpatient E&M: 78828 Init Hosp L2
[2022-11-25 23:04] VITALS: BP 112/78; PULSE 72; RESP 18; TEMP 36.6; O2SAT 100
[2022-11-25 23:47] VITALS: PULSE 72
[2022-11-25 23:57] VITALS: BMI 21.9
[2022-11-26] VITALS (8 sets, daily range): BP systolic 92–132; BP diastolic 64–77; PULSE 68–76; RESP 16–18; TEMP 36.6–37.3; O2SAT 96–100; BMI 21.9
--- NOTE | 2022-11-26 | GASB_PTH ---
PATIENT: MARIJA HARTMAN LOC: MS3 U#:[id number] AGE/SX: 47/F ROOM: [facility] [place] RE11/25/[address]: Dr. Saritha Kelly DO : 1975 BED: 1 DIS: 11/26/2022 SPEC #: [id number] RECD: 11/26/22 14:15 STATUS: MIRA RECruz #: [id number] JOHANA: 11/26/22 00:[address]: Luis Jimenez DEPT: SURGICAL PATHOLOGY RECD BY: Rico Abarca ENTERED: 11/27/22 11:54 SP TYPE: Gastric Bx OTHR DR: MD Dr. Saritha Orourke DO Dr. Paul Nielsen, MD Tissues: A - Gastric mucous membrane B - Duodenum, NOS Procedures: Surgery Specimen Level IV Comments: @ Ordering doctor for SUIV edited from to @ by ML at 11/28/22730 @ Submitting doctor edited from to @ by ML at 11/28/2231 HEADER OPERATION: EGD ([facility] [place] biopsy PRE-OP DIAGNOSIS: Intractable abdominal pain, nausea, emesis, weight loss TISSUE SUBMITTED: A ? Gastric body biopsy, B ? Duodenum biopsy MICROSCOPIC DIAGNOSIS A. Gastric body, biopsy: Chronic gastritis. See comment. B. Duodenum, biopsy: Focal acute duodenitis. 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 AM:beto 11/28/2022 COMMENT A. The results of immunohistochemistry for Helicobacter pylori will be reported separately ([id number]). Immunohistochemistry ([id number]) supports the above diagnosis. MICROSCOPIC DESCRIPTION Slides are reviewed. GROSS DESCRIPTION A - Received in fixative is one container labeled with the patient's name and designated gastric body biopsy. The specimen consists of multiple irregular fragments of light maldonado soft tissue that in aggregate measure 1.0 x 0.5 x 0.1 cm. The specimen is totally submitted in one cassette. B - Received in fixative is one container labeled with the patient's name and designated duodenum biopsy. The specimen consists of two irregular fragments of light maldonado soft tissue that in aggregate measure 0.5 x 0.3 x 0.1 cm. The specimen is totally submitted in one cassette. / AM:beto 11/27/2022 TC:3 CPT: 37631 x2
[2022-11-26] MEDS: 0.9% Normal Saline 1,000 ML 125 ML IV ×2 (00:11→09:34)
[2022-11-26] MEDS: 0.9% Saline Lock 10 ML Syringe IV (04:01)
[2022-11-26] MEDS: Ondansetron 4 MG/2 ML Vial IV (04:01)
[2022-11-26 05:52] LABS: Absolute Lymphocyte Count 0.91 X10^3/uL (0.83-4.51); Basophil# 0.02 X10^3/uL; Basophil% 0.4 % (0-1); Eosinophil# 0.06 X10^3/uL; Eosinophils% 1.1 % (0-5); Hemoglobin 11.8 g/dL (12.0-15.0); Lymphocyte # 0.91 X10^3/ul (0.83-4.51); Lymphocyte % 16.6 % (19-41); Mean Corp Hgb Conc 34.7 g/dL (32-36); Mean Corpuscular Hgb 30.9 pg (27.0-32.0); Mean Platelet Vol. 10.9 fl (6.2-12.0); Monocyte# 0.44 X10^3/uL; NRBC Flagged by Analyzer 0 % (0-5); Neutrophil # 4.04 X10^3/uL (2.7-7.7); Neutrophil % 73.7 % (47-70); Platelet Count 150 K/mm3 (150-450); RBC Distribution Width CV 12.4 % (11.6-14.6); RBC Distribution Width SD 40.2 fl (35.1-43.9); Red Blood Count 3.82 M/mm3 (4.2-5.4); White Blood Count 5.5 K/mm3 (4.4-11.0)
[2022-11-26 06:40] LABS: ALB/GLOB Ratio 1.2 RATIO (0.9-2.4); AST(SGOT) 123 U/L (15-37); Alanine Aminotransfer ALT/SGPT 139 U/L (13-56); Alkaline Phosphatase 51 U/L (45-117); Anion Gap 6 (5-15); BUN 6 mg/dL (7-18); BUN/Creat Ratio 10.9 RATIO (10-20); Calcium,Total 7.7 mg/dL (8.5-10.1); Chloride 112 mmol/L (98-107); Creatinine, Serum 0.55 mg/dL (0.55-1.02); EST Glomerular Filtration Rate 127 mL/min (>60); Est Glom Filt Rate - Afr Amer 153 mL/min (>60); Estimated Creatinine Clearance 115.01 ml/min; Globulin 2.6 g/dL (2.2-4.2); Glucose 105 mg/dL (74-106); Potassium 3.7 mmol/L (3.5-5.1); Protein, Total 5.6 g/dL (6.4-8.2); Sodium Level 142 mmol/L (136-145); Thyroid Stim Hormone (TSH) 4.34 uIU/mL (0.358-3.74)
[2022-11-26 09:14] LABS: Hemoglobin A1c 4.9 % (3.8-5.6)
[2022-11-26] MEDS: Fluticasone 0.05% 1 SPRAY NASAL.SRY 2 SPRAY NASAL (09:36)
[2022-11-26] MEDS: Lactated Ringers 1,000 ML 15 ML IV (12:09)
--- NOTE | 2022-11-26 13:35 | IMM_PTH ---
PATIENT: MARIJA HARTMAN LOC: MS3 U#:[id number] AGE/SX: 47/F ROOM: [facility] [place] RE11/25/[address]: Dr. Saritha Kelly DO : 1975 BED: 1 DIS: 11/26/2022 SPEC #: [id number] RECD: 11/27/22 15:00 STATUS: MIRA REQ #: [id number] JOHANA: 11/26/22 13:[address]: Luis Jimenez DEPT: IMMUNOHISTOCHEMISTRY RECD BY: Kiesha Parham ENTERED: 11/27/22 15:00 SP TYPE: IMMUNO OTHR DR: MD Dr. Saritha Orourke DO Dr. Paul Nielsen, MD Tissues: A - Stomach, NOS Procedures: H Pylori (initial) BCL-2 (add) CD20 (add) CD3 (add) CD45 (add) CD5 (add) CD79A (add) PHYSICIAN & INSTITUTION [address] [address] SPECIMEN INFORMATION: Tissue Source: A ? Gastric body Clinical Info: Intractable abdominal pain, nausea, emesis Specimen Number: [id number] CPT code: 92130, 03572 x6 METHODOLOGY: Deparaffinized sections of prefer/formalin-fixed tissue or PAP/DQ stained slides are incubated with monoclonal/polyclonal antibodies/oligonucleotide probes. Localization is made via biotin free immunoperoxidase method. Appropriate controls are performed and reacted as expected. Results on target cell population are indicated in the following table: RESULTS: ANTIBODY / CLONE RESULT Block A H Pylori (polyclonal) negative CD3 (PS1) positive CD5 (SP10) positive CD20 (L26) positive CD45 (RP2/18) positive CD79a (11E3) positive BCL-2 (bcl-2/100/D5) positive, zonal These tests were developed and their performance characteristics determined by [facility]. They may not have been cleared or approved by the U.S. Food and Drug Administration. The FDA has determined that such clearance or approval is not necessary. The above immunohistochemical/dualISH markers are ordered and reviewed by the Pathologist. INTERPRETATION: A. Gastric body, biopsy: Negative for Helicobacter pylori organisms. No evidence of lymphoproliferative disorder. AM:beto 11/29/2022
--- NOTE | 2022-11-26 13:45 | OP.EGD_ITS ---
Patient Name: Jeannette Arambula Procedure Date: 11/26/2022 1:34 PM Date of : 1975 Age: 47 Procedure: Upper GI endoscopy Indications: Epigastric abdominal pain Providers: Luis Jimenez DO Medicines: Monitored Anesthesia Care Patient Profile: This is a 47 year old female. Refer to note in patient chart for documentation of history and physical. Patient has symptoms of acute abdominal cramping, chronic abdominal distention and acute global abdominal pain. Complications: No immediate complications. Procedure: Pre-Anesthesia Assessment: - Prior to the procedure, a History and Physical was performed, and patient medications and allergies were reviewed. The patient is competent. The risks and benefits of the procedure and the sedation options and risks were discussed with the patient. All questions were answered and informed consent was obtained. Patient identification and proposed procedure were verified. Mental Status Examination: alert and oriented. Airway Examination: normal oropharyngeal airway and neck mobility. Respiratory Examination: clear to auscultation. CV Examination: normal. Prophylactic Antibiotics: The patient does not require prophylactic antibiotics. Prior Anticoagulants: The patient has taken no previous anticoagulant or antiplatelet agents. ASA Grade Assessment: II - A patient with mild systemic disease. After reviewing the risks and benefits, the patient was deemed in satisfactory condition to undergo the procedure. The anesthesia plan was to use monitored anesthesia care (MAC). Immediately prior to administration of medications, the patient was re-assessed for adequacy to receive sedatives. The heart rate, respiratory rate, oxygen saturations, blood pressure, adequacy of pulmonary ventilation, and response to care were monitored throughout the procedure. The physical status of the patient was re-assessed after the procedure. After obtaining informed consent, the endoscope was passed under direct vision. Throughout the procedure, the patient's blood pressure, pulse, and oxygen saturations were monitored continuously. The gastroscope was introduced through the mouth, and advanced to the second part of duodenum. The upper GI endoscopy was accomplished without difficulty. The patient tolerated the procedure well. Scope In: 1:37:23 PM Scope Out: 1:41:19 PM Total Procedure Duration Time 0 hours 3 minutes 56 seconds Findings: The examined esophagus was normal. Diffuse severe inflammation characterized by erosions, erythema and friability was found in the stomach. Biopsies were taken with a cold forceps for histology. Verification of patient identification for the specimen was done. Patchy mildly erythematous mucosa without active bleeding and with no stigmata of bleeding was found in the first portion of the duodenum. Biopsies were taken with a cold forceps for histology. Verification of patient identification for the specimen was done. Estimated blood loss was minimal. Impression: - Normal esophagus. - Chronic gastritis. Biopsied. - Erythematous duodenopathy. Biopsied. Recommendation: - [facility]. - Advance diet as tolerated. - Use Protonix (pantoprazole) 40 mg PO BID. - Continue present medications. Procedure Code(s): --- Professional --- 82672, Esophagogastroduodenoscopy, flexible, transoral; with biopsy, single or multiple CPT copyright 2017 [employer]. All rights reserved. The codes documented in this report are preliminary and upon document preparation specialist review may be revised to meet current compliance requirements. Luis Jimenez DO 11/26/2022 1:45:16 PM This report has been signed electronically. Number of Addenda: 0 Note Initiated On: 11/26/2022 1:34 PM
--- NOTE | 2022-11-26 13:46 | OP.CCLET_ITS ---
11/26/2022 Gene Davis MD [address] [place] [address] Re : Upper GI endoscopy procedure for [facility] Dear Dr. Davis This procedure was performed on Saturday, November 26, 2022. My impressions and recommendations are as follows: Impressions : - Normal esophagus. - Chronic gastritis. Biopsied. - Erythematous duodenopathy. Biopsied. Recommendations : - [facility]. - Advance diet as tolerated. - Use Protonix (pantoprazole) 40 mg PO BID. - Continue present medications. My findings are described in the full procedure note, which is enclosed. If I can be of further assistance, please feel free to contact me at . Sincerely, Luis Jimenez, 11/26/2022 1:45:16 PM This report has been signed electronically.
--- NOTE | 2022-11-26 16:54 | PCM.DC.SUM ---
Providers Date of Admission: 11/25/22 Date of Discharge: 11/26/22 Primary Care Physician: Dr. Gene Davis MD Consultations 11/25/22 23:48 Consult: Gastroenterology Routine Consulting Provider: [facility] Reason for Consult: Epigastric pain, ? gastritis, wt loss, fullness sensation. EMERGENT Consult: No MD Notified: Yes Date Notified: 11/25/22 Time Notified: 22:57 Method of Notification: Text Reason For Visit: ABD PAIN, N/V Diagnosis Discharge Diagnosis (1) Abdominal pain: Status: Acute Code(s): R10.9 - Unspecified abdominal pain (2) Transaminitis: Status: Acute Code(s): R74.01 - Elevation of levels of liver transaminase levels (3) Gastritis: Status: Acute Code(s): K29.70 - Gastritis, unspecified, without bleeding Medications at Discharge Home Medications lansoprazole 30 mg delayed release,disintegrating tablet (Prevacid SoluTab) 30 mg PO BID #60 tabs 11/26/22 Hospital Course Procedures EGD and - (CT abdomen pelvis/right upper quadrant ultrasound) Summary of Care Provided Minutes Spent on Discharge: 33 Hospital Course: Mrs. Arambula is a 47-year-old white female who presented to the emergency department at [facility] on 11/25/2022 with a chief complaint of abdominal pain, nausea, and vomiting. She had acute onset upper gastric discomfort that wrapped around her torso bilaterally after eating a small amount of hamburger and fries at a restaurant. The pain was bandlike. She had associated nausea and emesis with no improvement and felt like she was having a difficult time taking a deep breath. She presented to the emergency department and reported several month history of fullness sensation following oral intake. She is on no chronic home medications. She reported normal bowel function prior to admission. Lab work was unremarkable at the time of admission. UA was unremarkable. Serum was negative. CT of the abdomen pelvis showed no acute intra-abdominal findings. Right upper quadrant ultrasound was performed was unremarkable. In the emergency department she received Zofran, Dilaudid and a GI cocktail. They were planning on sending her home however when she started to move she had recurrence of pain so request for admission was made. She was admitted to the medical floor and placed on IV fluids as well as given antiemetics and pain medication. GI was consulted. They evaluated the patient. On the day after admission she had some mild transaminase elevation and differential for this was ischemic hepatitis with cramping NTND decreased blood flow or sphincter of Oddi syndrome or possible passing of a small stone in her gallbladder. She was taken for an EGD for evaluation giving her above complaints and she was found to have chronic diffuse gastritis and erythematous duodenopathy. It was recommended she be on a PPI twice daily. Biopsies were taken which will require outpatient follow-up. I discussed the case with Dr. Jimenez from gastroenterology and he felt she can discharge home as long as she was able to tolerate a p.o. diet without difficulty. The patient did tolerate p.o. without difficulty and no reproduction of nausea, vomiting, or abdominal pain. Patient does not tolerate pills well so we will send home lansoprazole so she can make a slurry and take this. She will need to follow-up with Dr. Jimenez and she has been instructed to call his office within next 24 to 48 hours to schedule follow-up for her biopsy results. She was discharged home in stable condition on 11/26/2022. She is to follow-up with her primary care physician within the next week. I would recommend repeat liver function be performed at the time of her outpatient follow-up with her primary care physician. Discharge diagnoses: Abdominal pain-resolved Nausea vomiting-resolved Chronic gastritis Erythematous duodenopathy Mild transaminitis History of GERD History of DVT History of hypothyroidism Allergic rhinitis Physical Exam Const alert, oriented x3, no apparent distress, average body habitus and healthy appearing General Appearance: cooperative, comfortable, well kempt and well developed Orientation / Consciousness: awake, oriented to person, oriented to place and oriented to time Exam Limitations: no limitations HEENT normocephalic, head/scalp atraumatic, hearing grossly normal bilaterally and moist oral mucous membranes Resp normal respiratory effort, no retractions, no use of accessory muscles and clear to auscultation bilaterally Auscultation: Negative for rales, rhonchi or wheezes Cardio regular rate, regular rhythm, S1 normal heart sound, S2 normal heart sound, no murmurs, no rub, no gallops and no clicks GI normal to inspection, nondistended, normoactive bowel sounds and soft to palpation GI Narrative: No tenderness with palpation of the abdomen at any location Extremity no clubbing, cyanosis or edema Extremity Narrative: 2+ pedal pulses Neuro oriented x3, CN's II-XII intact bilaterally, moves all extremities, no focal motor deficits and no sensory deficits noted Speech: speech normal Psych Psych Narrative: Affect is slight flat but eye contact is good and mood appears normal Weight / BMI Weight Weight: 59.8 kg Body Mass Index (BMI) 21.9 ABG / Lab / Microbiology Data Result Diagrams: 11/26/22 05:25 11/26/22 05:25 Laboratory: Laboratory Results - last 24 hr 11/25/22 19:15: WBC 10.7, RBC 4.63, Hgb 13.7, Hct 42.1, MCV 90.9, MCH 29.6, MCHC 32.5, RDW Std Deviation 40.6, RDW Coeff of Vahe 12.3, Plt Count 190, MPV 10.5, Immature Gran % (Auto) 0.500, Neut % (Auto) 84.1 H, Lymph % (Auto) 9.5 L, [place] % (Auto) 4.3, Eos % (Auto) 1.4, Baso % (Auto) 0.2, Absolute Neuts (auto) 9.0 H, Absolute Lymphs (auto) 1.02, Nucleated RBC % 0 11/25/22 19:15: Sodium 142, Potassium 3.8, Chloride 110 H, Carbon Dioxide 25.0, Anion Gap 7, BUN 9, Creatinine 0.71, Estim Creat Clear Calc 89.09, Est GFR (MDRD) Af Amer 114, Est GFR (MDRD) Non-Af 94, BUN/Creatinine Ratio 12.7, Glucose 143 H, Calcium 8.4 L, Total Bilirubin 0.40, AST 21, ALT 23, Alkaline Phosphatase 56, Total Protein 6.7, Albumin 3.6, Globulin 3.1, Albumin/Globulin Ratio 1.2, Lipase 24 11/25/22 19:15: Serum , Qual NEGATIVE 11/25/22 19:15: Urine Color Yellow, Urine Clarity Clear, Urine pH 6.0, Ur Specific Sterling 1.020, Urine Protein 15 H, Urine Glucose (UA) Normal, Urine Ketones 5 H, Urine Occult Blood 150 H, Urine Nitrite Negative, Urine Bilirubin Negative, Urine Urobilinogen Normal, Ur Leukocyte Esterase 500 H, Urine RBC 0-5 SEEN, Urine WBC 0-5 SEEN, Ur Squamous Epith Cells 0-5 SEEN, Urine Bacteria 1+, Urine Mucus 0 SEEN 11/26/22 05:25: WBC 5.5, RBC 3.82 L, Hgb 11.8 L, Hct 34.0 L, MCV 89.0, MCH 30.9, MCHC 34.7 D, RDW Std Deviation 40.2, RDW Coeff of Vahe 12.4, Plt Count 150, MPV 10.9, Immature Gran % (Auto) 0.200, Neut % (Auto) 73.7 H, Lymph % (Auto) 16.6 L, [place] % (Auto) 8.0, Eos % (Auto) 1.1, Baso % (Auto) 0.4, Absolute Neuts (auto) 4.0, Absolute Lymphs (auto) 0.91, Nucleated RBC % 0 11/26/22 05:25: Sodium 142, Potassium 3.7, Chloride 112 H, Carbon Dioxide 24.0, Anion Gap 6, BUN 6 L, Creatinine 0.55, Estim Creat Clear Calc 115.01, Est GFR (MDRD) Af Amer 153, Est GFR (MDRD) Non-Af 127, BUN/Creatinine Ratio 10.9, Glucose 105, Calcium 7.7 L, Total Bilirubin 0.70, AST 123 H, ALT 139 H, Alkaline Phosphatase 51, Total Protein 5.6 L, Albumin 3.0 L, Globulin 2.6, Albumin/Globulin Ratio 1.2, TSH 4.34 H, Free T4 1.00 11/26/22 05:25: Hemoglobin A1c 4.9 Radiography Diagnostic Testing: Radiology Impression Abdomen/Pelvis CT 11/25/22 19:04 IMPRESSION: Normal enhanced CT of the abdomen and pelvis. Electronically Signed: Andrey Caldera MD at 20:41 EDT Reading Location ID and State: [id number] / [employer] Tel , Service support , Gallbladder Ultrasound 11/25/22 22:38 IMPRESSION: Normal right upper quadrant ultrasound examination. Electronically Signed: Andrey Caldera MD at 23:53 EDT Reading Location ID and State: [id number] / [employer] Tel , Service support , D/C Instructions Discharge Diet: Yancey diet (Progress to normal diet as tolerated) Discharge Activity: Return to Normal Activity Return to work on: 11/27/22 Meaningful Use Info Meaningful Use Diagnoses (Choose all that apply): None applicable Discharge Plan Admission Admit Date/Time: 11/25/22 22:35 Primary Reason for Your Visit: Abdominal pain/nausea and vomiting Attending Provider: Saritha Kelly Primary Care Provider: Gene Davis Consulting Providers: Bertha Hurley Instructions Additional Instructions / Restrictions: 1. Please call Dr. Jimenez's office as soon as possible within the next 24 to 48 hours to schedule follow-up appointment for biopsy results Discharge Orders/Prescriptions Prescriptions: New lansoprazole [Prevacid SoluTab] 30 mg tablet,disintegrat, delay rel 30 mg PO BID Qty: 60 1RF Referrals / Follow Up: Gene Davis MD [Primary Care Provider] - Within 1 Month Luis Jimenez DO [Med Staff - Active Staff] - Within 2 Weeks (Call for appointment to be seen as soon as possible within the next 2 weeks ) Disposition Disposition (needs filled in before D/C Order can be placed): Home, Self Care Charges/Coding Visit Charges Inpatient E&M: 92018 Disch Hosp
--- NOTE | 2022-12-04 09:10 | CASEMGMT ---
Addendum entered by Hilary Murrell 12/04/22 13:19: Pt called back and states that her lansoprazole was changed to a different medication that is covered by her insurance and she has picked it up and taking it. Pt denies questions or other needs. Original Note: TC to pt to confirm receipt of her lansoprazole 30mg DR tablets as prior auth received. Left vm requesting returned call.
== END 2022-11-26 17:40 | disposition home or self-care (01) ==
LOC: ED 22:34 → MS3 23:19
PROVIDERS: Internal Medicine Gastroenterology; Nurse Practitioner; Admitting Provider Family Medicine; Emergency Provider Emergency Medicine; PCP Family Medicine; Visit Provider Internal Medicine
PROC: 0DJ08ZZ Inspection of Upper Intestinal Tract, Via Natural or Artificial Opening Endoscopic (ICD-10-PCS; CPT 43235; principal; 2022-11-26 13:30)
DX: R10.13 Epigastric pain (principal); R74.01 Elevation of levels of liver transaminase levels; K29.50 Unspecified chronic gastritis without bleeding; K21.9 Gastro-esophageal reflux disease without esophagitis; Z86.718 Personal history of other venous thrombosis and embolism; M79.7 Fibromyalgia; R73.9 Hyperglycemia, unspecified
CPT/HCPCS: 43239; 36415; 74177; 76705; 80053; 81001; 83036; 83690; 84439; 84443; 84703; 85025; 88305; 88341; 88342; 96361; 96365; 96366; 96375; 96376; 97802; 99221; 99285; J7030; J7120; Q9967; A4216; G0378; J2405; J3490

== ENCOUNTER → 2023-01-17 | Outpatient (CLI) | payer OTHER, SELFPAY ==
--- NOTE | 2023-01-17 09:25 | NM_ITS ---
CLINICAL: 48-year-old female with history of abdominal pain. RADIONUCLIDE HEPATOBILIARY SCINTIGRAPHY COMPARISON: None available FINDINGS: Following the intravenous administration of 5.6 mCi of 99m Tc Mebrofenin, hepatobiliary images reveal: 1. Relatively prompt and homogeneous radiopharmaceutical concentration is noted by a normal sized liver. No parenchymal defects are identified. 2. Gallbladder activity is identified at 15 minutes post radiopharmaceutical administration. 3. Small intestinal tract is observed at 30 minutes following tracer injection. 4. Washout of the radiopharmaceutical by the hepatic parenchyma appears qualitatively normal. Cholecystokinin (0.02 ug/kg) was administered intravenously over a 30-minute period. The post CCK gallbladder ejection fraction calculated at 20 minutes following Cholecystokinin administration was noted to be 4-5 % (normal greater than 35%). NM/Hepatobilliary Img w/Pharm Int IMPRESSION: 1. ABNORMAL 99m Tc Mebrofenin hepatobiliary imaging examination with Cholecystokinin. A. A gallbladder ejection fraction calculated to be less than 35% following the administration of Cholecystokinin is consistent with the presence of functional hepatobiliary disease (gallbladder and/or sphincter of Oddi dyskinesia) and/or organic hepatobiliary disease (chronic acalculous cholecystitis and/or cystic duct syndrome) in patients with intermediate to high pretest probabilities of hepatobiliary illness. (Radha Mendez et al, Journal of Nuclear Medicine 32:1695, 1991). Electronically Signed: Andrey Fuentes, at 22:29 EDT ,
== END | disposition home or self-care (01) ==
LOC: NM 09:23
PROVIDERS: PCP Family Medicine; Referring Provider Family Medicine; Visit Provider Family Medicine
DX: R10.9 Unspecified abdominal pain (principal)
CPT/HCPCS: 78227; A9537; J2805

== ENCOUNTER → 2023-02-06 | Outpatient (CLI) | payer OTHER, SELFPAY ==
[2023-02-06 16:29] LABS: Thyroid Stim Hormone (TSH) 9.62 uIU/mL (0.358-3.74)
[2023-02-11 18:13] LABS: Beef 0.23 kU/L (Class 0/I); Chocolate <0.10 kU/L (Class 0); Clam <0.10 kU/L (Class 0); Codfish <0.10 kU/L (Class 0); Corn <0.10 kU/L (Class 0); Egg, White <0.10 kU/L (Class 0); Egg, Whole <0.10 kU/L (Class 0); Milk (Cow) 0.13 kU/L (Class 0/I); Peanut <0.10 kU/L (Class 0); Pork <0.10 kU/L (Class 0); SCALLOP <0.10 kU/L (Class 0); SESAME SEED <0.10 kU/L (Class 0); Shrimp <0.10 kU/L (Class 0); Soybean <0.10 kU/L (Class 0); Walnut, (Food) <0.10 kU/L (Class 0); Wheat <0.10 kU/L (Class 0)
== END | disposition home or self-care (01) ==
LOC: LAB 14:59
PROVIDERS: PCP Family Medicine; Referring Provider Internal Medicine Gastroenterology; Visit Provider Internal Medicine Gastroenterology
DX: E03.9 Hypothyroidism, unspecified (principal); K82.8 Other specified diseases of gallbladder; R74.01 Elevation of levels of liver transaminase levels
CPT/HCPCS: 36415; 84443; 86003; 86005

== ENCOUNTER → 2023-02-08 | Outpatient (CLI) | payer OTHER, SELFPAY ==
[2023-02-08 18:01] LABS: ALB/GLOB Ratio 1.4 RATIO (0.9-2.4); AST(SGOT) 8 U/L (15-37); Alanine Aminotransfer ALT/SGPT 15 U/L (13-56); Alkaline Phosphatase 57 U/L (45-117); Anion Gap 6 (5-15); BUN 12 mg/dL (7-18); BUN/Creat Ratio 18.8 RATIO (10-20); Calcium,Total 8.6 mg/dL (8.5-10.1); Chloride 105 mmol/L (98-107); Creatinine, Serum 0.64 mg/dL (0.55-1.02); EST Glomerular Filtration Rate 106 mL/min (>60); Est Glom Filt Rate - Afr Amer 129 mL/min (>60); Globulin 2.8 g/dL (2.2-4.2); Glucose 90 mg/dL (74-106); Potassium 3.9 mmol/L (3.5-5.1); Protein, Total 6.8 g/dL (6.4-8.2); Sodium Level 139 mmol/L (136-145)
== END | disposition home or self-care (01) ==
LOC: MFPLAB 15:56
PROVIDERS: PCP Family Medicine; Visit Provider Family Medicine
DX: R74.01 Elevation of levels of liver transaminase levels (principal)
CPT/HCPCS: 36415; 80053

== ENCOUNTER 2023-02-21 09:07 | Day surgery (SDC) | payer OTHER, SELFPAY ==
[2023-02-21] VITALS (9 sets, daily range): BP systolic 104–127; BP diastolic 70–91; PULSE 50–71; RESP 18; TEMP 36.2–36.9; O2SAT 95–99; BMI 23.7
--- NOTE | 2023-02-21 10:00 | RAD_ITS ---
STUDY: INTRAOPERATIVE CHOLANGIOGRAM. REASON FOR EXAM: Female, 48 years old. Laparoscopic cholecystectomy. FLUOROSCOPY TIME (if supplied): ( 4 seconds ) minutes/seconds. 0.67 mGy TECHNIQUE: An intraoperative Cholangiogram was performed by the surgeon. Imaging was performed. COMPARISON: None. FINDINGS: The visualized intra and extrahepatic biliary ducts are unremarkable. No intraluminal filling defect is seen. There is free flow of contrast into the duodenum. RAD/Cholangiogram/ O R,Initial IMPRESSION: Unremarkable intraoperative cholangiogram. Electronically Signed: Raf Lopez MD at 13:40 EDT ,
--- NOTE | 2023-02-21 10:24 | PCM.HP.BLA ---
History and Physical Date of Admission: 02/21/23 Date of Service: 02/04/23 MR#: [id number] Acct: [id number] Name: MARIJA HARTMAN Rep #: [id number] : 1975 Provider: Dr. Jennifer Quintero MD Age/Sex: 48/F Location: [facility] Status: Signed with Addenda ADDENDUM by Dr. Jennifer Quintero MD on 02/05/23 at 1537 Intake Chief Complaint: ABD PAIN/ Gallbladder diseease Allergies codeine Allergy (Verified 02/04/23 15:10) Hives Medications pantoprazole 40 mg tablet,delayed release (Protonix) 40 mg PO DAILY #30 tabs 11/29/22 [Rx Confirmed 02/04/23] calcium carbonate 500 mg calcium (1,250 mg) chewable tablet (Calcium 500) 500 mg PO DAILY 02/04/23 [History Confirmed 02/04/23] tumeric 100 mg-johnna 150 mg-olive 50 mg-oreg 150 mg-caprylate capsule cap PO 02/04/23 [History Confirmed 02/04/23] Assessment and Plan Assessment and Plan (1) Biliary dyskinesia: Status: Acute (2) Gastroesophageal reflux disease: Status: Inactive 02/05/23 1537 <Electronically signed by Jennifer Quintero MD> Date Jennifer Quintero MD cc: Dr. Gene Davis MD ~* Signed Intake Vital Signs 11/27/2311:20 02/04/2315:09 Height 5 ft 5 in 5 ft 5 in Weight: 144 lb 8 oz BMI 24.0 BP 110/71 Blood Pressure Location Rt brachial Position Sitting Respiration 17 Pulse 87 Pulse Source Monitor Temp 97.1 F L Temp Source Temporal Pulse Oximetry (%) 100 Oxygen Delivery Method room air Intake Visit Reasons: GALLBLADDER DISEASE Chief Complaint: ABD PAIN/ Gallbladder diseease Allergies codeine Allergy (Verified 02/04/23 15:10) Hives Medications pantoprazole 40 mg tablet,delayed release (Protonix) 40 mg PO DAILY #30 tabs 11/29/22 [Rx Confirmed 02/04/23] calcium carbonate 500 mg calcium (1,250 mg) chewable tablet (Calcium 500) 500 mg PO DAILY 02/04/23 [History Confirmed 02/04/23] tumeric 100 mg-johnna 150 mg-olive 50 mg-oreg 150 mg-caprylate capsule cap PO 02/04/23 [History Confirmed 02/04/23] PFSH Medical History Allergic rhinitis Anxiety Depression Fibromyalgia Gastritis Gastroesophageal reflux disease History of venous thromboembolism Hypothyroid Hypothyroidism Migraines Non-smoker Surgical History H/O section History of bilateral salpingectomy History of bilateral tubal ligation History of bladder surgery History of hysterectomy S/P ureteral stent placement Family History (Updated 02/04/23 @ 15:08 by Layne Dowell) Mother Diabetes Hypertension Thyroid disorder Fibromyalgia Asthma Cancer pancreaticFather Hypertension Social History household members: spouse Smoking Status: Never smoker alcohol intake: current alcohol intake frequency: holidays/special occasions only substance use type: does not use HPI HPI HPI: 48-year-old female presents due to abnormal gallbladder?biliary dyskinesia. Patient had a HIDA scan showed less than 5% ejection fraction. Patient recently had an EGD by Dr. Jimenez in November which showed erythema and erosions patient was started on Protonix. Currently patient has not been taking medication for about a week as she has an excision of right thigh lipoma by Dr. Leon tomorrow. Patient states that if she eats red meat or greasy food she can get some epigastric pain occasional nausea and vomiting. Patient states this happened about 30 minutes after eating. Initially back in November the pain did start prior to 30 minutes in this area. Patient denies any nausea in the morning. Patient had an ultrasound showed no gallstones normal wall normal common bile duct no pericholecystic fluid. ROS General General: No weight change, appetite, fatigue, colon cancer or breast cancer HEENT HEENT: No difficulty swallowing, eye injury, eye surgery, swollen glands or hoarseness Endo Endocrine: Yes thyroid disease; No diabetes mellitus, thyroid cancer, Hair loss, heat intolerance or cold intolerance Skin Skin: No rash or changing moles Musc Musculoskeletal: No back problems, arthritis, rheumatoid arthritis, gout or joint pain Cardio Cardiovascular: No murmur, pacemaker, heart disease, atrial fibrillation, high blood pressure, heart attack, heart stent, palpitations, shortness of breat with exertion or chest pain Psych Psychiatric: No depression, anxiety or hearing voices Resp Respiratory: No shortness of breath, No sleep apnea, No cough, No COPD, No asthma, No emphysema and No wheezing Gastro Gastrointestinal: Yes abdominal pain, Yes nausea or vomiting, No diarrhea, No constipation, No blood in stool, No acid reflux, No hemorrhoids, No ulcers, Yes gallbladder problem and No black,tarry stools Lior Hematologic: No blood thinners, No blood disorders, No bleeding, No anemia and No blood clots Neuro Neurologic: No numbness and No tingling Exam Const General: cooperative, healthy appearing, comfortable and no acute distress HENMT Head: normocephalic and atraumatic Neck Neck: supple Resp Effort & Inspection: normal respiratory effort Cardio Rate: regular rate GI Inspection: non-distended Palpation: soft, no hernias and nontender Skin General: no rashes or lesions noted Neuro General: CN's II-XI intact bilaterally Extrem General: normal to inspection Psych Mental Status: mental status grossly normal Attitude: cooperative Assessment and Plan Assessment and Plan (1) Biliary dyskinesia: Status: Acute (2) Gastroesophageal reflux disease: Status: Inactive Plan Discussed patient did recommend her staying on the Protonix through the perioperative time of the lap sophie. Reviewed the anatomy with the patient and discussed the procedure: laparoscopic cholecystectomy with cholangiograms, possible open. Review risks including but not limited to bleeding, infection, hernia, bile leak, retained gallstones requiring another procedure ERCP- Endoscopic Retrograde Cholangiopancreatography, injury to another organ (bile ducts, common bile duct, small bowel, etc.) and conversion to an open procedure. All questions were answered. Jennifer Quintero M.D. Pager: [phone] [facility] [address] [place] [address], [facility], [address] [place] [address] Office: [phone] Coding Level of Care Code Off vis,new,level 3 Diagnoses Biliary dyskinesia K82.8 Gastroesophageal reflux disease K21.9 02/05/23 1536 <Electronically signed by Jennifer Quintero MD> Date Jennifer Quintero MD
[2023-02-21] MEDS: Cefazolin 2 GM in 0.9% Normal Saline 100 ML IV (10:46)
--- NOTE | 2023-02-21 11:00 | GALL_PTH ---
PATIENT: MARIJA HARTMAN LOC: [facility] U#:[id number] AGE/SX: 48/F ROOM: RE02/21/[address]: Dr. Jennifer Quintero MD : 1975 BED: DIS: 02/21/2023 SPEC #: [id number] RECD: 02/21/23 12:55 STATUS: MIRA RECruz #: [id number] JOHANA: 02/21/23 11:[address]: Jennifer Quintero DEPT: SURGICAL PATHOLOGY RECD BY: Sudha De Oliveira ENTERED: 02/21/23 13:36 SP TYPE: ELSA OROZCO DR: Dr. Gene Davis MD Tissues: Gallbladder, NOS Procedures: Surgery Specimen Level III HEADER OPERATION: Laparoscopic cholecystectomy with IOC PRE-OP DIAGNOSIS: Biliary dyskinesia, GERD TISSUE SUBMITTED: Gallbladder MICROSCOPIC DIAGNOSIS Gallbladder, cholecystectomy: Cholesterolosis and chronic cholecystitis. AM:beto 02/22/2023 MICROSCOPIC DESCRIPTION Slides are reviewed. GROSS DESCRIPTION Received is one container labeled with the patient's name and designated gallbladder. The specimen consists of a gallbladder measuring 6.5 cm in length and up to 3.5 cm in diameter. The external surface is pink-maldonado, smooth and glistening for the most part. Focally it is granular, hemorrhagic and contains cautery artifact. The gallbladder contains green-yellow mucoid bile. No stones are identified in the container or in the gallbladder. The mucosa is bile-stained and without any mass lesions. The gallbladder wall measures up to 0.2 cm in thickness. The mucosa also shows several yellowish streaks consistent with cholesterolosis. [employer] sections from the gallbladder and the cystic duct are submitted in one cassette. / SJ:rg 02/21/2023 TC:3 [facility]: [id number]
[2023-02-21] MEDS: Bupivacaine Mpf 0.5% 30 ML VIAL (12:10)
--- NOTE | 2023-02-21 12:15 | PCM.OPRPT ---
Report of Operation Date of Procedure: 02/21/23 Pre-Operative Diagnosis: Biliary dyskinesia Post-Operative Diagnosis: Same Surgery/Procedure Performed:: Laparoscopic cholecystectomy with cholangiograms Surgeon: Jennifer Quintero Anesthesiologist: Thiago Montes De Oca Special Medications: Ancef 2 g IV x1 Specimen's removed: Gallbladder Estimated Blood Loss (mL): < 10 cc Description of Procedure: Indications: this is a 48 year-old female who developed abdominal pain/nausea/vomiting and on workup was found to have biliary dyskinesia with ejection fraction less than 5%, with a normal common bile duct. Laparoscopic cholecystectomy was elected. Description procedure: The patient was placed on operating table in supine position. A timeout was completed verifying correct patient, procedure, site, position and special equipment prior to beginning procedure. General Anesthesia was induced. The abdomen was prepped and draped in usual sterile fashion. An incision was made in the natural skin line above the umbilicus. The fascia was elevated and incised. The peritoneum was elevated and incised. Entry into the peritoneum was confirmed visually and no bowel was noted in the vicinity of the incision. Bell trocar was placed. The abdomen was insufflated with carbon dioxide to a pressure of 12-15 mmHg. Patient tolerated insufflation well. The laparoscope was then inserted and abdomen inspected. No injuries from initial trocar placement were noted. Additional trochars were then inserted in the following locations 5 mm trocar in the epigastrium and 2 more 5 mm trochars along the right costal margin. The abdomen was inspected no abnormalities were found. The table is placed in reverse Trendelenburg position with the right side up. The adhesions between the gallbladder and omentum were lysed sharply. The dome of the gallbladder was grasped with atraumatic grasper passed through the lateral port and retracted over the dome of the liver. Infundibulum was then grasped with atraumatic grasper through the midclavicular port and retracted to the right lower quadrant. This maneuver exposed Calot's triangle. The peritoneum overlying the gallbladder infundibulum was then incised and cystic duct and artery identified and circumferentially dissected. Matthews catheter was used for cholangiograms. The cholangiogram showed good filling of the common bile duct into the duodenum with no filling defects, good filling of the right and left bile ducts as well. The cystic duct and artery were then doubly clipped and divided close to the gallbladder. The gallbladder then dissected from its peritoneal attachments by electrocautery, there was some bile spillage which was irrigated and suctioned from the Matthews site. Hemostasis was checked and the gallbladder was removed using the endoscopic retrieval bag through the umbilical port. The gallbladder is passed off table as specimen. The gallbladder fossa was irrigated with saline and hemostasis obtained. There is no evidence of bleeding from the gallbladder fossa or cystic artery leakage of bile from the cystic duct stump. Secondary trochars removed under direct vision. No bleeding was noted the trocar sites. The laparoscope was withdrawn and umbilical trocar removed. The abdomen was allowed to collapse. The fascia of the 12 mm trocar was closed with a [id number] 0 Vicryl suture. The skin was closed with sutures of 4-0 Monocryl and Steri-Strips. The patient was extubated. The patient tolerated procedure well and was taken to the postanesthesia care unit in stable condition. Complications none
--- NOTE | 2023-02-21 12:17 | DCINST_ITS ---
Discharge Instructions Diet Discharge Diet: Light diet - advance as tolerated Activity Discharge Activity: May Not Drive (while taking narcotic pain medications.) May shower in (days): 1 Lifting Restrictions: no lifting >20 lbs x 2 wks, no strenuous exercise for 4 wks Dressing / Incision Call your doctor if your incision/area has: Continuous Slow Oozing, Sudden Increased Bleeding, Increased Pain/ Swelling, Increased Redness, Foul Smelling Discharge and Swelling at the incision site Call your doctor if you observe: Fever of 101 or Higher Remove Dressing in: 2 days Cleanse incision/area with: Soap & Water Additional Dressing/Incision Instructions:: Steri-Strips will fall off in 7 to 10 days, if they do not fall off okay to remove after 10 days. Follow Up Care Please Follow Up With: Jennifer Quintero MD When: Call the office for a follow-up appointment 2 weeks; after 5 PM and on the weekends call [phone] with any concerns. Test Results: Test results from this visit will be discussed in further detail at your follow- up appointment, if applicable. Discharge Plan Admission Attending Provider: Jennifer Quintero Primary Care Provider: Gene Davis Discharge Orders/Prescriptions Prescriptions: New tramadol 50 mg tablet 50 mg PO Q6H PRN (Reason: pain) Qty: 10 0RF Continued calcium carbonate [Calcium 500] 500 mg calcium (1,250 mg) tablet,chewable 500 mg PO DAILY levothyroxine [Synthroid] 50 mcg tablet 50 mcg PO DAILY pantoprazole [Protonix] 40 mg tablet,delayed release (DR/EC) 40 mg PO DAILY Qty: 30 2RF Referrals / Follow Up: Gene Davis MD [Primary Care Provider] - Disposition Disposition (needs filled in before D/C Order can be placed): Home, Self Care
== END 2023-02-21 16:00 | disposition home or self-care (01) ==
LOC: SDC 09:29 → AC 09:30
PROVIDERS: PCP Family Medicine; Referring Provider Surgery; Visit Provider Surgery
PROC: (CPT 47610; principal; 2023-02-21 10:40)
DX: K81.1 Chronic cholecystitis (principal); K21.9 Gastro-esophageal reflux disease without esophagitis; Z79.899 Other long term (current) drug therapy; E03.9 Hypothyroidism, unspecified; Z79.890 Hormone replacement therapy
CPT/HCPCS: 47563; 00790; 74300; 76000; 88304; J7120; J2405

== ENCOUNTER → 2023-10-24 | Outpatient (CLI) | payer OTHER, SELFPAY ==
[2023-10-24 12:44] LABS: Anion Gap 5 (5-15); BUN 6 mg/dL (7-18); BUN/Creat Ratio 7.4 RATIO (10-20); Calcium,Total 8.4 mg/dL (8.5-10.1); Chloride 109 mmol/L (98-107); Cholesterol 149 mg/dL (200); Creatinine, Serum 0.81 mg/dL (0.55-1.02); EST Glomerular Filtration Rate 80 mL/min (>60); Est Glom Filt Rate - Afr Amer 97 mL/min (>60); Free T3 2.4 pg/mL (2.18-3.98); Glucose 81 mg/dL (74-106); High Density Lipoprotein 45 mg/dL; Sodium Level 139 mmol/L (136-145); T4 Free Direct 0.99 ng/dL (0.76-1.46); Thyroid Stim Hormone (TSH) 2.68 uIU/mL (0.358-3.74); Triglycerides 75 mg/dL; Very Low Density Lipoprotein 15 mg/dL (5-40)
== END | disposition home or self-care (01) ==
LOC: MFPLAB 09:47
PROVIDERS: PCP Family Medicine; Visit Provider Family Medicine
DX: Z00.00 Encounter for general adult medical examination without abnormal findings (principal); E03.9 Hypothyroidism, unspecified
CPT/HCPCS: 36415; 80048; 80061; 84439; 84443; 84481

== ENCOUNTER 2025-01-06 09:39 | Outpatient (CLI) | payer OTHER, SELFPAY ==
[2025-01-06 13:20] LABS: HIV Nonreactive (Nonreactive); Syphilis Antibodies Nonreactive (Nonreactive)
[2025-01-07 05:07] LABS: HSV 1 IgG Non Reactive (Non Reactive); HSV 2 IgG Non Reactive (Non Reactive)
== END 2025-01-06 23:59 | disposition home or self-care (01) ==
LOC: MFPLAB 09:40
PROVIDERS: PCP Family Medicine; Visit Provider Family Medicine
DX: Z11.3 Encounter for screening for infections with a predominantly sexual mode of transmission (principal)
CPT/HCPCS: 36415; 86695; 86696; 86703; 86780

== ENCOUNTER → 2025-02-22 | Outpatient (CLI) | payer OTHER, SELFPAY ==
[2025-02-22 18:19] LABS: AST(SGOT) 12 U/L (<=31); Alanine Aminotransfer ALT/SGPT 6 U/L (<=34); Albumin, Serum 4.3 g/dL (3.5-5.0); Alkaline Phosphatase 64 U/L (35-104); Anion Gap 12 (5-15); BUN 9 mg/dL (4-19); BUN/Creat Ratio 14.4 RATIO (10-20); Calcium,Total 9.2 mg/dL (7.6-11.0); Carbon Dioxide 24.7 mmol/L (21.0-32.0); Chloride 104 mmol/L (98-108); Free T3 3.1 pg/mL (2.18-3.98); Globulin 2.5 g/dL (2.2-4.2); Glucose 86 mg/dL (70-99); Potassium 3.9 mmol/L (3.3-5.1)
== END | disposition home or self-care (01) ==
LOC: MFPLAB 16:56
PROVIDERS: PCP Family Medicine; Visit Provider Family Medicine
DX: E03.9 Hypothyroidism, unspecified (principal); R74.01 Elevation of levels of liver transaminase levels
CPT/HCPCS: 36415; 80053; 84439; 84443; 84481

== ENCOUNTER → 2025-05-27 | Outpatient (CLI) | payer OTHER, SELFPAY ==
[2025-05-27 13:39] LABS: AST(SGOT) 16 U/L (<=31); Alanine Aminotransfer ALT/SGPT 12 U/L (<=34); Albumin, Serum 4.2 g/dL (3.5-5.0); Alkaline Phosphatase 58 U/L (35-104); Anion Gap 11 (5-15); BUN 10 mg/dL (4-19); BUN/Creat Ratio 14.0 RATIO (10-20); Calcium,Total 8.9 mg/dL (7.6-11.0); Carbon Dioxide 24.8 mmol/L (21.0-32.0); Chloride 104 mmol/L (98-108); Free T3 2.7 pg/mL (2.18-3.98); Globulin 2.9 g/dL (2.2-4.2); Glucose 118 mg/dL (70-99); Lipase 17 U/L (13-75); Magnesium 1.7 mg/dL (1.5-2.2); Potassium 3.7 mmol/L (3.3-5.1)
== END | disposition home or self-care (01) ==
LOC: MFPLAB 11:02
PROVIDERS: PCP Family Medicine; Visit Provider Family Medicine
DX: E03.9 Hypothyroidism, unspecified (principal); R74.01 Elevation of levels of liver transaminase levels; E83.42 Hypomagnesemia; R10.9 Unspecified abdominal pain
CPT/HCPCS: 36415; 80053; 83690; 83735; 84439; 84443; 84481

== ENCOUNTER → 2025-06-23 | Outpatient (CLI) | payer OTHER, SELFPAY ==
--- NOTE | 2025-06-23 16:45 | CT_ITS ---
PROCEDURE: ABDOMEN/PELVIS WITH CONTRAST 06/23/2025 REASON FOR EXAM: DIARRHEA, ABD PAIN TECHNIQUE: Procedure Code: [id number] Modality: CT Procedure: ABDOMEN/PELVIS WITH CONTRAST. Oral contrast was administered. Coronal and Sagittal reconstruction series were provided. CONTRAST: None One or more dose reduction techniques were used (e.g., Automated exposure control, adjustment of the mA and/or kV according to patient size, use of iterative reconstruction technique. RADIATION DOSE SUMMARY: DLP: 497.97 mGycm COMPARISON: CT abdomen/pelvis 11/25/2022 FINDINGS: Lower chest: Lung bases are clear. Liver: Normal size. Normal morphology and enhancement. No enhancing lesion. Gallbladder and biliary ducts: Cholecystectomy. Normal caliber intrahepatic and common bile ducts. Pancreas:Unremarkable. No ductal dilatation or mass. No peripancreatic fluid. Spleen: Unremarkable. Adrenal glands: Unremarkable. Kidneys and ureters: Normal renal size, morphology, and enhancement. No nephroureterolithiasis, hydronephrosis, or renal mass. Urinary bladder: Unremarkable. GI: Unremarkable stomach and duodenum. Normal caliber small bowel and large bowel.No evidence for bowel wall thickening. Appendix: Unremarkable. Peritoneum: No ascites. Tiny fat containing umbilical hernia. Lymph nodes: No lymphadenopathy. Vasculature: Portal, splenic, and superior mesenteric veins are patent. No abdominal aortic aneurysm. Reproductive organs: Hysterectomy. Right adnexal cystic lesion measuring approximately 1.9 x 1.3 cm (series 2, image 91). Musculoskeletal and soft tissues: No aggressive osseous lesions. Unremarkable soft tissues. CT/Abdomen/Pelvis WITH Contrast IMPRESSION: 1. No acute abdominopelvic pathology. 2. Right adnexal cystic lesion measuring up to 1.9 cm. Reading Location: [place] [address]
== END | disposition home or self-care (01) ==
LOC: CT 16:36
PROVIDERS: PCP Family Medicine; Referring Provider Student in an Organized Health Care Education/Training Program; Visit Provider Student in an Organized Health Care Education/Training Program
DX: R19.7 Diarrhea, unspecified (principal); R10.9 Unspecified abdominal pain
CPT/HCPCS: 74177; Q9967

== ENCOUNTER 2025-06-25 08:10 | Day surgery (SDC) | payer OTHER, SELFPAY ==
[2025-06-25] VITALS (8 sets, daily range): BP systolic 91–118; BP diastolic 62–90; PULSE 67–83; RESP 16; TEMP 36.6–36.9; O2SAT 98–100; BMI 25.7
--- NOTE | 2025-06-25 08:15 | PCM.PRE.AN2 ---
ASA Classification* ASA Classification ASA Classification: 2 Assessment & Plan Anesthesia* Anesthesia Assessment Anesthesia Assessment: Discussed sedation and/or anesthesia options, risks, benefits, and alternatives with patient/parents/legal guardian/POA. Questions invited. The patient/parents/legal guardian/POA seems to understand and agrees to proceed with anesthesia plan. Reviewed the physical assessment, medical history, allergy history and patient home medications list prior to surgery/procedure/anesthetic and documented any changes. Performed airway and anesthesia risk assessments. Anesthesia Type Anesthesia Type: MAC Anesthesia Focused Assessment* Airway Assessment Mouth opens: >3 cm Mallampati Score: II Labs Anesthesia Preop lab: CBC WBC, (4.4-11.0) 5.5 K/mm3 11/26/22, 05:25 RBC, (4.2-5.4) 3.82 M/mm3 L 11/26/22, 05:25 Hgb, (12.0-15.0) 11.8 g/dL L 11/26/22, 05:25 Hct, (37-47) 34.0 % L 11/26/22, 05:25 Plt Count, (150-450) 150 K/mm3 11/26/22, 05:25 CHEMISTRY Potassium, (3.3-5.1) 3.7 mmol/L 05/27/25, 11:02 Sodium, (133-145) 139 mmol/L 05/27/25, 11:02 Magnesium, (1.5-2.2) 1.7 mg/dL 05/27/25, 11:02 BUN, (4-19) 10 mg/dL 05/27/25, 11:02 Creatinine, (0.70-1.20) 0.71 mg/dL 05/27/25, 11:02 Glucose, (70-99) 118 mg/dL H 05/27/25, 11:02 TSH, (0.300-4.200) 4.450 uIU/mL H 05/27/25, 11:02 COAG PT, (11.7-14.9) 13.0 SECONDS 18, 08:35 Pre-Assessment Diagnosis/Proposed Procedure Planned Operative Procedure(s): CSCOPE Anesthesia History Anesthesia History - data collection technician: Anesthesia History - data collection technician Hx Hospitalization Yes: [facility] - [facility] 06/23/25 16:08 CAUSING SYNCOPE Any Problems With Anesthesia No 06/23/25 16:08 Cholinesterase deficiency No 06/23/25 16:08 You/Your Family Experience No 06/23/25 16:08 fever (hyperthermia) with Relationship Recent Exposure to Contagious No 02/21/23 09:49 Disease Does patient have nerve No 06/23/25 16:08 stimulator Patient instructed to have device shut off --Does patient have Pacemaker or ICD? When Was Last Pacemaker Check QUESTION #4 FULL TEXT: You/Your Family Experience fever (hyperthermia) with Anesthesia Last Oral Intake Last Oral intake: Last Oral Intake NPO since Meds taken in AM with sips of water? Meds patient instructed to take am of surgery PONV PONV - data collection technician: PONV - data collection technician Female Yes 06/23/25 16:08 HX of Motion Sickness Yes 06/23/25 16:08 HX of N/V After Surgery Yes 06/23/25 16:08 Non-Smoker Yes 06/23/25 16:08 Duration of Surgery greater No 06/23/25 16:08 than 60 minutes Number of Risk Factors 4 06/23/25 16:08 PONV Score Severe Risk 06/23/25 16:08 Height & Weight Height & Weight: Anesthesia: Height & Weight Height 5 ft 5 in 02/21/23 09:49 Respiratory Assessment Respiratory Assessment - data collection technician: Respiratory Tract Infection Hx - data collection technician Hx Respiratory Tract Infection No 06/23/25 16:08 STOP Sleep Apnea STOP Sleep Apnea - data collection technician: STOP Sleep Apnea - data collection technician Hx Hypertension No 06/23/25 16:08 Hx Sleep Apnea No 06/23/25 16:08 CPAP BIPAP Do you snore loudly (louder No 06/23/25 16:08 than talking or can be heard Do you often feel tired/ No 06/23/25 16:08 fatigued/ sleepy during daytime? Has anyone observed you stop No 06/23/25 16:08 breathing during sleep? STOP Results Negative 06/23/25 16:08 QUESTION #5 FULL TEXT : Do you snore loudly (louder than talking or can be heard through closed doors)? 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 Specify any problems Hx of Preganancy in last 3 N/A 06/23/25 16:08 Months Nurse Filling Out Transfusion NBUCHER 06/23/25 16:08 & Questions: Date: 06/23/25 06/23/25 16:08 Time: 16:09 06/23/25 16:08 Patient unable to answer at this time (ie. confused, unrespo /Reproduction History /Reproductive History - data collection technician: /Reproductive Hx- data collection technician Hx Now No 06/23/25 16:08 Gestational Age (in weeks): EDC: Hx Hx Para Hx Section SAB No 06/23/25 16:08 Does the father of the baby or his family experience fever w Father of the baby Malignant Hypertension history comment [facility] Medical History History of endometriosis Anemia DVT (deep venous thrombosis) Syncope History of stress test Thyroid disease Gastric reflux History of lipoma Biliary dyskinesia Gastritis Anxiety Depression Hypothyroidism Non-smoker Migraines Allergic rhinitis History of venous thromboembolism Gastroesophageal reflux disease Hypothyroid Fibromyalgia Home Medications ?Medication ?Instructions ?Recorded ?Last Taken ?Type cholecalciferol (vitamin D3) 10 10 mcg PO QDAY 06/01/25 Unknown History mcg (400 unit) capsule magnesium 200 mg tablet 200 mg PO QDAY 06/01/25 Unknown History peg 3350-electrolytes 236 240 ml PO Q10M #4,000 mL 06/01/25 Unknown Rx gram-22.74 gram-6.74 gram-5.86 gram solution (Golytely) potassium chloride 8 mEq 8 meq PO QDAY 06/01/25 Unknown History capsule,extended release Allergy/AdvReac Type Severity Reaction Status Date / Time codeine Allergy Hives Verified 06/23/25 16:07 Family History Mother Diabetes Hypertension Thyroid disorder Fibromyalgia Asthma Cancer pancreatic Father Hypertension Surgical History History of cholecystectomy History of bilateral tubal ligation H/O section History of bladder surgery S/P ureteral stent placement History of bilateral salpingectomy History of hysterectomy Social History household members: spouse Smoking Status: Never smoker alcohol intake: current alcohol intake frequency: holidays/special occasions only substance use type: does not use Review of Systems (Anesthesia) ROS Narrative System reviewed and no additional complaints, except as documented.
[2025-06-25] MEDS: Lactated Ringers 1,000 ML 15 ML IV (08:30)
--- NOTE | 2025-06-25 09:00 | COLBX_PTH ---
PATIENT: MARIJA HARTMAN LOC: [place] U#:[id number] AGE/SX: 50/F ROOM: RE06/25/[address]: Dr. Luis Jimenez DO : 1975 BED: DIS: 06/25/2025 SPEC #: [id number] RECD: 06/25/25 11:34 STATUS: MIRA RECruz #: [id number] JOHANA: 06/25/25 09:[address]: Luis Jimenez DEPT: SURGICAL PATHOLOGY RECD BY: Sudha De Oliveira ENTERED: 06/25/25 13:25 SP TYPE: COLON BX OTHR DR: Dr. Gene Davis MD Tissues: A - Ileum, NOS B - COLON BIOPSY C - Rectum, NOS Procedures: Surgery Specimen Level IV HEADER OPERATION: Colonoscopy with biopsy PRE-OP DIAGNOSIS: Diarrhea TISSUE SUBMITTED: A- Terminal ileum biopsy, B- Random colon biopsy, C- Rectal biopsy MICROSCOPIC DIAGNOSIS A. Small intestine, terminal ileum, biopsy: - Normal villous architecture with focally prominent mucosal lymphoid tissue, favor reactive process - see note. Note: If clinical suspicion for a lymphoproliferative disorder is high, please contact the laboratory to request additional evaluation. B. Colon, random, biopsy: - Benign colonic mucosa with no specific pathologic change. - Focal submucosal adipose noted, suggestive of submucosal lipoma. - The histologic features of microscopic colitis are not demonstrated. C. Rectum, biopsy: - Acute proctocolitis with acute cryptitis and mild crypt distortion - see note. - No granulomas or dysplasia seen. Note: The histologic differential diagnosis includes medication-injury reaction, infection, and diverticular disease-associated colitis. Evolving inflammatory bowel disease is a less likely consideration. MICROSCOPIC DESCRIPTION Slides are reviewed. GROSS DESCRIPTION A. Received in fixative is one container labeled with the patient's name and designated Terminal ileum biopsy. The specimen consists of multiple irregular fragments of maldonado tissue that in aggregate measure 1 x 0.4 x 0.1 cm. The specimen is totally submitted in one cassette. B. Received in fixative is one container labeled with the patient's name and designated Random colon biopsy. The specimen consists of multiple irregular fragments of maldonado tissue that in aggregate measure 1.4 x 0.8 x 0.1 cm. The specimen is totally submitted in one cassette. C. Received in fixative is one container labeled with the patient's name and designated Rectal biopsy. The specimen consists of one irregular fragment of maldonado tissue that measures 0.6 cm. The specimen is totally submitted in one cassette. [place] 06/25/2025 CPT:30999d0
--- NOTE | 2025-06-25 09:05 | PCM.HP.STD ---
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 Surgery 8.10.11 cholecystectomy, pathology cholesterolosis and chronic cholecystitis Last office visit 12/20/2023 feeling well with no GI symptoms at this time. Continues with pantoprazole. OV 06/01/2025 patient recently hospitalized at [facility] due to hypokalemia, hypocalcemia and hypomagnesia after numerous episodes of diarrhea. Patient had about 2 to 3 hours of continuous diarrhea and had a syncopal episode prior to going to the hospital. Diarrhea has resolved at this point. Workup did not reveal etiology of her diarrhea. Stool testing for infectious pathogens was negative. She did not have any imaging. Patient endorses similar attacks like this happening 1-2 times per month but not as severe. She notes she will have diarrhea 3 times and generalized abdominal pain. This started after she had her gallbladder out. She does not notice any specific food triggers. In between flares she is typically constipated with a bowel movement every 3 days. She does not take anything for constipation. She has never had a colonoscopy. She denies family history of colon cancer. Abdomen/Pelvis WITH Contrast Today R19.7 - Diarrhea, unspecified Calprotectin, Stool Today R19.7 - Diarrhea, unspecified Medications: New peg 3350-electrolytes 236-22.74-6.74 -5.86 gram (Golytely) until fecal effluent is clear 240 mL PO Q10M 4,000 mL 0RF ] [facility] Medical History History of endometriosis Anemia DVT (deep venous thrombosis) Syncope History of stress test Thyroid disease Gastric reflux History of lipoma Biliary dyskinesia Gastritis Anxiety Depression Hypothyroidism Non-smoker Migraines Allergic rhinitis History of venous thromboembolism Gastroesophageal reflux disease Hypothyroid Fibromyalgia Home Medications ?Medication ?Instructions ?Recorded ?Last Taken ?Type cholecalciferol (vitamin D3) 10 10 mcg PO QDAY 06/01/25 Unknown History mcg (400 unit) capsule magnesium 200 mg tablet 200 mg PO QDAY 06/01/25 Unknown History peg 3350-electrolytes 236 240 ml PO Q10M #4,000 mL 06/01/25 Unknown Rx gram-22.74 gram-6.74 gram-5.86 gram solution (Golytely) potassium chloride 8 mEq 8 meq PO QDAY 06/01/25 Unknown History capsule,extended release Allergy/AdvReac Type Severity Reaction Status Date / Time codeine Allergy Hives Verified 06/25/25 08:27 Family History Mother Diabetes Hypertension Thyroid disorder Fibromyalgia Asthma Cancer pancreatic Father Hypertension Surgical History History of cholecystectomy History of bilateral tubal ligation H/O section History of bladder surgery S/P ureteral stent placement History of bilateral salpingectomy History of hysterectomy Social History household members: spouse Smoking Status: Never smoker alcohol intake: current alcohol intake frequency: holidays/special occasions only substance use type: does not use ROS Constitutional Constitutional: Denies fatigue, fever(s), poor appetite, weight gain or weight loss Gastrointestinal Gastrointestinal: Denies belching, bloating, change in bowel habits, change in stool character, chewing difficulty, coffee ground emesis, constipation, cramping, diarrhea, dyspepsia, dysphagia, early satiety, excessive flatus, fecal incontinence, heartburn, hematemesis, hematochezia, hemorrhoids, loose stools, melena, nausea, odynophagia, rectal bleeding, tenesmus, vomiting or weight changes Vital Signs Vital Signs Vital Signs: 06/25/25 08:28 06/25/25 08:28 06/25/25 08:28 Temperature 98.5 F Temperature Source Temporal Pulse Rate 83 Respiratory Rate 16 Respiratory Pattern Normal Blood Pressure 118/77 Blood Pressure Mean 90 Blood Pressure Source Monitor Blood Pressure Position Semi-Fowlers Blood Pressure Location Right Arm Baseline BP 118/77 Pulse Ox 100 Oxygen Delivery Method Room Air Weight Weight: 154 lb 8.705 oz Body Mass Index (BMI) 25.7 Physical Exam Const alert, oriented x3, no apparent distress and healthy appearing General Appearance: cooperative GI normal to inspection, nondistended, normoactive bowel sounds, soft to palpation, non-tender and non-distended Percussion: normal to percussion Rectal Exam: deferred Assessment & Plan Assessment/Plan (1) Diarrhea: PLAN: Assessment and Plan Assessment and Plan (1) Diarrhea: Status: Acute Plan: Jeannette is a 50-year-old female patient with past medical history of thyroid disease on levothyroxine here today for hospital follow-up. Patient recently hospitalized at [place] due to hypokalemia, hypomagnesia and hypocalcemia secondary to severe diarrhea. Labs were stabilized and she was discharged without known etiology of diarrhea. She did not undergo any imaging. Stool testing for infectious pathogens was negative. She is currently on magnesium, calcium and potassium supplement with normalized levels. Recommended stool testing with calprotectin to measure the inflammation in her colon. Will also order CT abdomen pelvis to further evaluate for inflammation of the colon. She does endorse a history of constipation with a bowel movement every 3 days. She may have overflow diarrhea. Patient has not had screening colonoscopy and therefore will be scheduled today. Denies family history of colon cancer. - Colonoscopy with GoLytely prep - CT abdomen pelvis - Calprotectin - Continue vitamin supplements and follow-up with primary care provider - Follow-up after testing Note: Portions of this note may have been selectively carried forward from previous documentation to ensure continuity and accuracy of the clinical record. All imported information has been reviewed and updated as necessary to reflect the current patient status, findings, and clinical decision-making for this encounter. [employer] speech recognition merchandise shopper software was used to create portions of this document. Sound alike and misspelled words, as well as other merchandise shopper errors may be contained in the documentation. (2) Abdominal pain: Status: Inactive Orders: Orders
--- NOTE | 2025-06-25 09:39 | PCM.POST.ANE ---
Anesthesia: Postop Eval I Current Vital Signs Temperature: 98 F Pulse Rate: 67 Blood Pressure: 110/77 Respiratory Rate: 16 Pulse Ox: 99 Oxygen Delivery Method: Room Air Assessment Airway patent: Yes Spontaneous unlabored respirations: Yes Mental status: Asleep nausea: No Vomiting: No Anesthesia Complication: No Fluid Hydration Crystalloid volume administer (ml): 500 Total IV fluid infused: 500 Progress Note Anesthesia document: Postop Eval 1 completed: Yes
--- NOTE | 2025-06-25 09:42 | OP.COLON_ITS ---
Patient Name: Jeannette Arambula Procedure Date: 06/25/2025 9:01 AM Date of : 1975 Age: 50 Procedure: Colonoscopy Indications: Screening for colorectal malignant neoplasm Providers: Luis Jimenez DO Medicines: Monitored Anesthesia Care Patient Profile: This is a 50 year old female. Refer to note in patient chart for documentation of history and physical. Last Colonoscopy: none. The patient's first colonoscopy is today. Complications: No immediate complications. Procedure: Pre-Anesthesia Assessment: - Prior to the procedure, a History and Physical was performed, and patient medications and allergies were reviewed. The patient is competent. The risks and benefits of the procedure and the sedation options and risks were discussed with the patient. All questions were answered and informed consent was obtained. Patient identification and proposed procedure were verified by the physician in the pre-procedure area. Mental Status Examination: alert and oriented. Airway Examination: normal oropharyngeal airway and neck mobility. Respiratory Examination: clear to auscultation. CV Examination: normal. Prophylactic Antibiotics: The patient does not require prophylactic antibiotics. Prior Anticoagulants: The patient has taken no anticoagulant or antiplatelet agents except for NSAID medication. ASA Grade Assessment: II - A patient with mild systemic disease. After reviewing the risks and benefits, the patient was deemed in satisfactory condition to undergo the procedure. The anesthesia plan was to use monitored anesthesia care (MAC). Immediately prior to administration of medications, the patient was re-assessed for adequacy to receive sedatives. The heart rate, respiratory rate, oxygen saturations, blood pressure, adequacy of pulmonary ventilation, and response to care were monitored throughout the procedure. The physical status of the patient was re-assessed after the procedure. After I obtained informed consent, the scope was passed under direct vision. Throughout the procedure, the patient's blood pressure, pulse, and oxygen saturations were monitored continuously. The Colonoscope was introduced through the anus and advanced to the cecum, identified by appendiceal orifice and ileocecal valve. The colonoscopy was performed without difficulty. The patient tolerated the procedure well. The quality of the bowel preparation was adequate. Scope In: 9:15:15 AM Scope Withdrawal Time 0 hours 11 minutes 5 seconds Scope Out: 9:29:18 AM Total Procedure Duration Time 0 hours 14 minutes 3 seconds Findings: The perianal and digital rectal examinations were normal. An area of mildly congested mucosa was found in the rectum, in the sigmoid colon, in the descending colon and in the ascending colon. Patchy mild inflammation characterized by congestion (edema) was found in the terminal ileum. Biopsies were taken with a cold forceps for histology. Verification of patient identification for the specimen was done. Estimated blood loss was minimal. Impression: - Congested mucosa in the rectum, in the sigmoid colon, in the descending colon and in the ascending colon. - Mild inflammation was found in the ileum secondary to ileitis. Biopsied. Recommendation: - Discharge patient to home. - Resume previous diet. - Continue present medications. - Await pathology results. - Repeat colonoscopy in 5 years for surveillance. Procedure Code(s): --- Professional --- 99140, Colonoscopy, flexible; with biopsy, single or multiple CPT copyright 2021 [employer]. All rights reserved. The codes documented in this report are preliminary and upon inoculator review may be revised to meet current compliance requirements. Luis Jimenez DO 06/25/2025 9:42:03 AM This report has been signed electronically. Number of Addenda: 0 Note Initiated On: 06/25/2025 9:01 AM
--- NOTE | 2025-06-25 09:43 | OP.PROVAT_ITS ---
06/25/2025 Gene Davis MD [address] [phone] Re : Colonoscopy procedure for [facility] Dear Dr. Davis This procedure was performed on Wednesday, June 25, 2025. My impressions and recommendations are as follows: Impressions : - Congested mucosa in the rectum, in the sigmoid colon, in the descending colon and in the ascending colon. - Mild inflammation was found in the ileum secondary to ileitis. Biopsied. Recommendations : - Discharge patient to home. - Resume previous diet. - Continue present medications. - Await pathology results. - Repeat colonoscopy in 5 years for surveillance. My findings are described in the full procedure note, which is enclosed. If I can be of further assistance, please feel free to contact me at . Sincerely, Luis Jimenez, 06/25/2025 9:42:03 AM This report has been signed electronically.
--- NOTE | 2025-06-25 10:00 | PCM.POSTANE2 ---
Anesthesia Postop Eval I Sum Postop Eval Completion status Anesthesia document: Postop Eval 1 completed: Yes Anesthesia Postop Eval I Summary Anesthesia Postop Eval I Summary: Anesthesia Postop Eval I: Assessment Summary Airway patent Yes 06/25/25 09:42 [email or web address] Spontaneous unlabored Yes 06/25/25 09:42 [email or web address] respirations Mental status Asleep 06/25/25 09:42 [email or web address] nausea No 06/25/25 09:42 [email or web address] Vomiting No 06/25/25 09:42 [email or web address] Anesthesia Postop Eval I: Fluid Summary Crystalloid volume administer 500 06/25/25 09:42 [email or web address] (ml) Colloids volume administered ( ml) Blood Product volume administered (ml) Total IV fluid infused 500 06/25/25 09:42 [email or web address] Anesthesia Postop Eval I: Summary Notes Anesthesia Complication No 06/25/25 09:42 [email or web address] Anesthesia Complication Comment: Post-operative progress note Anesthesia: Postop Eval II Evaluation Mental status: Awake Pain Level: 0 nausea: No Vomiting: No
== END 2025-06-25 10:37 | disposition home or self-care (01) ==
LOC: EN 08:13 → AC 08:15
PROVIDERS: PCP Family Medicine; Referring Provider Family Medicine; Visit Provider Internal Medicine Gastroenterology
PROC: 0DJD8ZZ Inspection of Lower Intestinal Tract, Via Natural or Artificial Opening Endoscopic (ICD-10-PCS; CPT 45378; principal; 2025-06-25 08:55)
DX: K52.9 Noninfective gastroenteritis and colitis, unspecified (principal); R10.9 Unspecified abdominal pain; Z86.718 Personal history of other venous thrombosis and embolism; K21.9 Gastro-esophageal reflux disease without esophagitis; E03.9 Hypothyroidism, unspecified; Z79.890 Hormone replacement therapy; K62.89 Other specified diseases of anus and rectum; Z90.49 Acquired absence of other specified parts of digestive tract
CPT/HCPCS: 45380; 88305; J2405